=== PATIENT | male | born 1935 | race Caucasian/White ===

== ENCOUNTER 2016-11-12 08:42 | Inpatient (IN) | payer OTHER, BC ==
[~2016-11-12] VITALS: Ht 167.6 cm; Wt 65.0 kg
--- NOTE | ~2016-11-12 | PLAN ---
[facility] [place] [address] REHAB UNIT PLAN OF CARE Name: CARLOTAMARCUS Syed Room #: 505-P ADM IN M.R.#: [id number] Admission: 11/12/16 Attend Phys: Jm Zimmerman MD Discharge: Date of : 35 Report #: [id number] THIS REPORT FOR: //name// CC: Jm Huang DATE OF SERVICE: 11/14/2016 PROGRESS NOTE/OVERALL PLAN OF CARE The patient is seen back today in followup. He is in no distress. Last recorded temperature is 36.8, pulse 54, respirations 20, and blood pressure 119/57. He is alert, pleasant. He does have mild comprehensive deficits with some lqsx-eh-acdocvgj expressive deficits. He seems to be more focused and better retention. Transfers are max assist, bed to wheelchair utilizing the sliding board. In occupational therapy, lower body dressing is dependent. ASSESSMENT: 1. Encephalopathy. Appears to be improving. 2. Left hemiparesis. 3. Premorbid left above-knee amputation. 4. Prior cerebrovascular accident. 5. Left carotid occlusion. 6. Premorbid left above-knee amputation. 7. Renal failure, acute on chronic kidney disease. 8. Hypoxia was noted on original admission. He was noted to have emphysema with low probably for pulmonary embolism. 9. Initial bradycardia, thought related to hypothyroidism. 10. Peripheral vascular disease. PLAN: The overall plan of care is based on the preadmission screen, post-admission physician evaluation and information garnered from therapy assessments. 1. Estimated length of stay is probably two weeks. 2. Medical prognosis is reasonably good. 3. Anticipated interventions includes the interdisciplinary acute inpatient rehabilitation program with PT and OT and speech working with him. Rehab nursing assisting regarding medication management, skin care prophylaxis, bowel and bladder issues and nursing education. Case management is involved as well as the surgical product sales consultant physicians. 4. Anticipated functional outcomes would be for the patient to become better with transfers to achieve a level of limited assistance that he was at before. Also to improve as far as his cognition and level of ADLs, so that he can return back to his prior living situation. 5. Discharge destination would be to return back to the assisted living with his . [facility] [address] [place] [address] REHAB UNIT PLAN OF CARE Name: CARLOTABRADLEYCASSIA Lynch Room #: 505-P [facility] IN [facility].#: [id number] Admission: 11/12/16 Attend Phys: Jm Zimmerman MD Discharge: Date of : 35 Report #: [id number] 6. Expected therapy by discipline would include PT, OT and speech one hour per day each five days a week throughout the duration of the acute inpatient rehabilitation stay. <ELECTRONICALLY SIGNED> By: Jm Zimmerman MD 11/15/16 1223 0828 0916 Jm Zimmerman MD /nt
--- NOTE | ~2016-11-12 | H ---
[facility] [address] HISTORY AND PHYSICAL Name: CARLOTABRADLEYCASSIA Lynch Room #: 505-P ADM IN M.R.#: [id number] Admission: 11/12/16 Attend Phys: Jm Zimmerman MD Discharge: Date of : 35 Report #: [id number] THIS REPORT FOR: //name// CC: Jm Huang DATE OF SERVICE: 11/13/2016 HISTORY OF PRESENT ILLNESS: The patient is an 81-year-old white male previously known to me, who was originally admitted to [facility] with confusion and weakness on 11/08/2016. He was noted to have an encephalopathy. He was seen by Neurology. Noted to have hypoxia with V/Q scan negative. He does have significant emphysema. He has renal insufficiency, acute on chronic kidney disease and was being followed regarding bradycardic with heart rates in the 40s-60s, thought in part be related to hypothyroid state. No indication for a pacemaker. He does have an old stroke with left hemiparesis and has left carotid occlusion and a prior left above knee amputation. With the encephalopathy and mental status changes, he had a significant decrease in his functional level and has now been admitted for acute in-hospital inpatient rehabilitation. PAST MEDICAL HISTORY: Includes severe peripheral vascular disease, left above the knee amputation on 05/23/2016, history of coronary artery disease, premorbid left hemiparesis as noted above, left hip fracture, anemia of chronic disease, protein calorie malnutrition, hypertension, hyperlipidemia. PAST SURGICAL HISTORY: Includes coronary artery bypass surgery, left jalwl-iro-pjsx amputation, left fem-pop bypass, prior left hip repair. MEDICATIONS: Please see the full medication listing. ALLERGIES: CODEINE. FAMILY HISTORY: Noncontributory. SOCIAL HISTORY: Has been living at [facility] with his in an assisted living, was nonambulatory, did receive some assistance with transfers. He used manual wheelchair, no steps. REVIEW OF SYSTEMS: Not on O2 premorbidly. No current complaints of chest pain, shortness of breath or abdominal discomfort. He did not have any other systemic complaints. PHYSICAL EXAMINATION: GENERAL: An 81-year-old white male in no obvious distress. VITAL SIGNS: Last recorded temperature 98.5, pulse 54, respirations 20, blood [address] [address] HISTORY AND PHYSICAL Name: MARCUS VAN Room #: [address] [place] [address]#: [id number] Admission: 11/12/16 Attend Phys: Jm Zimmerman MD Discharge: Date of : 35 Report #: [id number] pressure 141/57. NEUROLOGIC: He is alert. He is pleasant. He is currently on 2 liters nasal prong O2. Facies appeared to be symmetric. HEENT: Appeared to be benign. CHEST: Some diffuse decreased breath sounds. CARDIOVASCULAR: Sounded regular rate and rhythm. ABDOMEN: Bowel sounds positive, nontender. GENITOURINARY AND RECTAL: Deferred. NEUROLOGIC: He will follow basic 1 step commands with some latency to his responses. Some decreased attention. Overall, is cooperative. EXTREMITIES: He has a definite left hemiparesis with left upper extremity weakness. Strength a grade 3+/5 with some increased tone. He has the left above-knee amputation, which appears well healed. He has some tightness and flexion approximately 15 degrees of flexion contracture. Right upper and right lower extremity are grade 4 to 4-/5. He has been needing assistance with basic transfers, max assist with bed mobility max assist. ASSESSMENT: 1. Encephalopathy. 2. Left hemiparesis. 3. Premorbid left above knee amputation. 4. Question of seizures. Neurology was involved. 5. Renal failure, zyhyc-nh-lkjkmsi kidney disease. 6. Hypoxia noted on original admission. She has emphysema with low probability for pulmonary embolism. 7. Bradycardic thought related to hypothyroidism. 8. Peripheral vascular disease. 9. Right internal carotid artery stenosis. PLAN: The patient is admitted for acute in-hospital inpatient rehabilitation. From a postadmission physician evaluation perspective, there are no relevant changes since the preadmission screening. Please see the above review of prior and current medical and functional conditions and comorbidities. Please see the patient's prior and current functional status. As far as risk of complications, he has multiple medical comorbidities as noted above. Initial plan of care involves the interdisciplinary acute inpatient rehabilitation program with the goal of maximizing the patient's functional independence, so that he can hopefully return back to his prior living situation. Prognosis is reasonably good with estimated length of stay probably at least 2 weeks. We will need to see how he does in therapies. The goal is to get him back to his prior living situation at the assisted living. Potential barriers would include his multiple medical comorbidities and decreased functional status. The patient meets diagnostic criteria for an acute in-hospital inpatient rehabilitation stay. He meets medical necessity criteria. We will have neuropsychology involved with his cognitive deficits/encephalopathy and speech [facility] [address] [place] [address] HISTORY AND PHYSICAL Name: MARCUS VAN Room #: 505-P ADM IN M.R.#: [id number] Admission: 11/12/16 Attend Phys: Jm Zimmerman MD Discharge: Date of : 35 Report #: [id number] therapy will be involved as well. We will have the rehab interdisciplinary team work with him to maximize his functional independence. He meets medical necessity criteria with multiple medical comorbidities as noted above. He does have the tolerance for an acute inpatient rehab level of care and has appropriate discharge goals back to the home setting. <ELECTRONICALLY SIGNED> By: Jm Zimmerman MD 11/15/16 1223 0810 0948 Jm Zimmerman MD /nt
--- NOTE | ~2016-11-12 | HC ---
[facility] [place] [address] CONSULTATION Name: MARCUS VAN Syed Room #: 505-P ADM IN M.R.#: [id number] Admission: 11/12/16 Attend Phys: Jm Zimmerman MD Discharge: Date of : 35 Report #: [id number] THIS REPORT FOR: //name// CC: Jm Huang DATE OF SERVICE: 11/16/2016 NEUROBEHAVIORAL STATUS EXAM ATTENDING PHYSICIAN: Jm Zimmerman M.D ORE GRADER: Du Mayorga, PhD CLINICAL PRESENTATION: The patient is an 81-year-old male admitted to the [facility] rehabilitation unit for a comprehensive inpatient rehabilitation program to improve functional mobility, activities of daily living and self-care and mental status secondary to deterioration in mental status resultant encephalopathy. He was experiencing acute episodes of confusion and disorientation while in his assisted living placement with his . Patient was brought to the hospital. His diagnoses on admission include left hemiparesis, encephalopathy, premorbid left above the knee amputation, question of seizure disorder, renal failure, acute on chronic kidney disease, hypoxia, bradycardia related to hypothyroidism, peripheral vascular disease and right internal carotid artery stenosis. A complete description of his medical condition and history can be found in his medical record. Neuropsychological consultation was requested to provide assistance in the assessment of cognitive and emotional status and to provide recommendations and services. As indicated, prior to this most recent hospitalization, he was living with his in an assisted living apartment at the [facility]. The patient has experienced numerous medical events within the last year that have required hospitalization. He has had numerous falls, an vrptq-bzo-ltzi amputation on 05/23/2016, nonhealing left heel ulcer and contractures of the left lower extremity. He is a high school graduate. He has two children. His family is very supportive. 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 TECHNIQUES UTILIZED: Clinical interview, review of medical records, staff consultation and behavioral observation, interview with and mini mental status exam 2 standard version. EXAMINATION FINDINGS: The patient was alert and partially cooperative with the assessment. He was unable to describe the reason for his hospitalization. The [address] [address] CONSULTATION Name: MARCUS VAN Syed Room #: 505-P [facility] IN ..#: [id number] Admission: 11/12/16 Attend Phys: Jm Zimmerman MD Discharge: Date of : 35 Report #: [id number] patient has diminished insight into aspects of cognitive impairment. He has been having difficulty with memory, attention/concentration and intermittent periods of disorientation. He does not report subjective depression or anxiety at this time. However, decreased insight into cognitive and emotional status is suggested. His performance on the mini mental status exam 2 standard version was extremely low with a raw score of 16 of 30. He has difficulty with visual spatial construction. Immediate memory is poor. Recognition memory appears better maintained than free recall suggesting deficits with retrieval contributing to his performance. His ability to sustain concentration for divided attention is extremely low. Difficulty in following instructions and visual spatial disorganization suggests executive dysfunction. The patient has had a right hemisphere stroke, which is likely contributing to impaired performance. Difficulty with attention/concentration, orientation, immediate recall and executive functioning are suggested. DIAGNOSTIC IMPRESSION: Major neurocognitive disorder (dementia), unspecified, with decreased insight and intermittent irritability -- extent to be determined likely in the moderate range. Depressive disorder, unspecified. RECOMMENDATIONS: Use of an antidepressant to assist with mood and behavior is indicated. He will require assistance in the implementation of compensatory strategies for areas of decreased cognition. Repetition will be necessary for maintaining recall. Encouraging interaction with peers, taking initiative and focus on his physical environmental to improve attention and arousal. Verbal praise and complements when engaging in activity and participating in therapies. I will continue to follow as needed. Thank you very much for allowing me to provide the consultation on this patient. <ELECTRONICALLY SIGNED> By: Du Mayorga, PhD 11/17/16 1540 1245 1953 Du Mayorga, PhD /nt
--- NOTE | ~2016-11-12 | D ---
[facility] [address] [place] [address] DISCHARGE SUMMARY Name: MARCUS VAN Room #: 505-P ADM IN M.R.#: [id number] Admission: 11/12/16 Attend Phys: Jm Zimmerman MD Discharge: Date of : 35 Report #: [id number] THIS REPORT FOR: //name// CC: Jm Huang The patient did miss some therapies on November 26 as she was fatigue/sleepy at that time. By: 1056 1815 Jm Zimmerman MD /nt
[~2016-11-12 08:42] MED LIST: ASPIR 8181 MG PO; ATORVASTATIN CA40 MG PO; BISACODYL SUPP10 MG RECTAL; COLACE100 MG PO; COREG3.125 MG PO; DEMADEX20 MG PO; FERREX 150150 MG PO; FLOMAX0.4 MG PO; GABAPENTIN 100100 MG PO; HYDROCHLOROTHIA25 M2 PO; HYDROCODONE-AP1 EAC6 PO; LAMICTAL100 MG PO; LEVOTHYROXINE0.05 MG PO; LIORESAL 10 MG10 MG PO; LISINOPRIL20 MG PO; MAG-AL PLUS SUS30 ML PO; MELATONIN3 MG PO; METOPROLOL SUCC50 MG PO; MI ACID SUSPEN355 ML PO; MIRALAX17 GM PO; OMEPRAZOLE40 MG PO; ONDANSETRON HCL4 M2 PO; PACERONE 200 M200 M1 PO; PEG3350510 GM PO; PEPCID20 MG PO; PHENERGAN 25 MG25 M1 PO; PROTONIX40 M1 PO; RAMIPRIL10 MG PO; SIMVASTATIN40 MG PO; TRAZODONE HCL50 MG PO; TYLENOL325 MG PO
[2016-11-12] MEDS ORDERED: HEPARIN SO5000 UNIT/ SUBQ (14:08)
[2016-11-12] MEDS ORDERED: DUONEB 2.5-0.5 M3 ML INH (14:08)
[2016-11-12] MEDS ORDERED: LEVOTHYROXIN0.088 MG PO (14:08)
[2016-11-12] MEDS ORDERED: LAMICTAL100 MG PO (14:08)
[2016-11-12] MEDS ORDERED: FLOMAX0.4 MG PO (14:08)
[2016-11-13 05:42] LABS: HEMOGLOBIN 10.7 gm/dL (14.0-18.0); MCH 24.6 pg (26.0-34.0); MCHC 32.3 g/dL (28.0-37.0); RBC 4.35 mil/uL (4.50-6.00); RDW 22.2 % (10.5-14.5); WBC 7.7 thou/uL (4.0-11.0)
[2016-11-13 06:01] LABS: CALCIUM 8.5 mg/dL (8.5-10.1); CREATININE 1.4 mg/dL (0.6-1.3); POTASSIUM 4.4 mmol/L (3.5-5.1)
[2016-11-13 17:57] LABS: HEMATOCRIT 37.1 % (42.0-52.0); HEMOGLOBIN 11.9 gm/dL (14.0-18.0)
[2016-11-14 05:14] LABS: HEMATOCRIT 31.6 % (42.0-52.0); HEMOGLOBIN 10.2 gm/dL (14.0-18.0); MCH 24.6 pg (26.0-34.0); MCHC 32.4 g/dL (28.0-37.0); RBC 4.16 mil/uL (4.50-6.00); RDW 22.4 % (10.5-14.5); WBC 6.4 thou/uL (4.0-11.0)
[2016-11-20 03:52] LABS: HEMATOCRIT 30.7 % (42.0-52.0); HEMOGLOBIN 9.9 gm/dL (14.0-18.0); MCH 24.8 pg (26.0-34.0); MCHC 32.3 g/dL (28.0-37.0); MCV 76.6 fL (80.0-100.0); RBC 4.01 mil/uL (4.50-6.00); RDW 23.1 % (10.5-14.5); WBC 7.1 thou/uL (4.0-11.0)
[2016-11-20 03:56] LABS: CALCIUM 8.3 mg/dL (8.5-10.1); CREATININE 1.7 mg/dL (0.6-1.3); POTASSIUM 4.3 mmol/L (3.5-5.1)
[2016-11-26 10:12] LABS: HEMATOCRIT 33.9 % (42.0-52.0); HEMOGLOBIN 10.9 gm/dL (14.0-18.0); MCH 24.7 pg (26.0-34.0); MCHC 32.2 g/dL (28.0-37.0); MCV 76.8 fL (80.0-100.0); RBC 4.41 mil/uL (4.50-6.00); RDW 23.1 % (10.5-14.5)
[2016-11-26 10:22] LABS: CALCIUM 8.5 mg/dL (8.5-10.1); CREATININE 1.6 mg/dL (0.6-1.3); POTASSIUM 4.2 mmol/L (3.5-5.1)
[2016-11-26 10:29] LABS: TOTAL BILIRUBIN 0.4 mg/dL (<0.1-1.0); TOTAL PROTEIN 6.4 g/dL (6.4-8.2)
[2016-11-26 11:03] LABS: ABG SAMPLE TYPE ARTERIAL; BE(vivo) -1.8 mmol/L (-2 to +3); HCO3 23.3 mmol/L (22.0-26.0); LACTATE 0.66 mmol/L (0.5-2.0); O2(CT) 13.9 mL/dL (15.0-23.0); PCO2 40.9 mmHg (35.0-45.0); PO2 56.3 mmHg (80.0-100.0); STICK SITE R.BRACHIAL; pH 7.374 (7.360-7.450); sO2 88.7 % (92.0-98.0); tCO2 24.6 mmol/L (24.0-30.0)
[2016-11-27 05:13] LABS: HEMATOCRIT 31.6 % (42.0-52.0); MCH 24.1 pg (26.0-34.0); MCHC 31.5 g/dL (28.0-37.0); MCV 76.4 fL (80.0-100.0); RBC 4.13 mil/uL (4.50-6.00); RDW 23.3 % (10.5-14.5); WBC 10.7 thou/uL (4.0-11.0)
[2016-11-27 15:32] LABS: URINE BILIRUBIN NEGATIVE (Negative); URINE BLOOD NEGATIVE (Negative); URINE COLOR YELLOW; URINE GLUCOSE-RANDOM* NEGATIVE (Negative); URINE KETONES NEGATIVE (Negative); URINE LEUKOCYTES-REFLEX NEGATIVE (Negative); URINE PROTEIN (DIPSTICK) TRACE (Negative); URINE SPECIFIC GRAVITY 1.025 (1.003-1.035)
[2016-11-28] MEDS ORDERED: PREDNISONE 10 M10 M1 PO (11:42)
[2016-11-28] MEDS ORDERED: NYAMYC15 GM TOP (11:42)
[2016-11-28] MEDS ORDERED: HOME MEDICATION INH (11:42)
[2016-11-28] MEDS ORDERED: PROTONIX40 M2 PO (11:43)
== END 2016-11-28 14:14 | DRG 71 ==
PROVIDERS: Internal Medicine; Physical Medicine & Rehabilitation
DX: G93.40 Encephalopathy, unspecified (principal); N17.9 Acute kidney failure, unspecified; I69.354 Hemiplegia and hemiparesis following cerebral infarction affecting left non-dominant side; N18.9 Chronic kidney disease, unspecified; E03.9 Hypothyroidism, unspecified; I73.9 Peripheral vascular disease, unspecified; F01.50 Vascular dementia, unspecified severity, without behavioral disturbance, psychotic disturbance, mood disturbance, and anxiety; F32.9 Major depressive disorder, single episode, unspecified; I25.10 Atherosclerotic heart disease of native coronary artery without angina pectoris; D63.8 Anemia in other chronic diseases classified elsewhere; E78.5 Hyperlipidemia, unspecified; I10 Essential (primary) hypertension; R00.0 Tachycardia, unspecified; I65.23 Occlusion and stenosis of bilateral carotid arteries; R53.81 Other malaise; J44.9 Chronic obstructive pulmonary disease, unspecified; Z95.1 Presence of aortocoronary bypass graft; Z89.612 Acquired absence of left leg above knee; Z87.81 Personal history of (healed) traumatic fracture; Z88.6 Allergy status to analgesic agent
CPT/HCPCS: 10112

== ENCOUNTER 2017-09-01 11:00 | Inpatient (IN) | payer OTHER, BC ==
[~2017-09-01] VITALS: Ht 167.6 cm; Wt 67.1 kg
--- NOTE | ~2017-09-01 | EKG ---
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 : 1935 Requested By: Nikia Ashley Order Number: [id number] MD: Drew Zacarias Measurements Intervals [place] Rate: 79 P: 16 NE: 182 QRS: -29 QRSD: 160 T: 7 QT: 386 QTc: 443 Interpretive Statements Sinus rhythm LVH with secondary repolarization abnormality Inferior infarct, old Compared to ECG 11/08/2016 13:55:52 Sinus bradycardia no longer present Electronically Signed On 09-02-2017 8:31:27 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
--- NOTE | ~2017-09-01 | H ---
[facility] [place] [address] HISTORY AND PHYSICAL Name: CARLOTABRADLEYCASSIA Lynch Room #: 218-P ADM IN M.R.#: [id number] Admission: 09/01/17 Attend Phys: Dominguez Rene MD Discharge: Date of : 35 Report #: [id number] THIS REPORT FOR: //name// CC: Qamar Rene DATE OF SERVICE: 09/01/2017 CHIEF COMPLAINT: Generalized weakness, nausea and cough. HISTORY OF PRESENT ILLNESS: The patient is an 82-year-old man with multiple medical problems, who has not felt well for last few days. The patient has had generalized weakness, nausea, vomited a few times, as well as had shortness of breath for last 3 days. The patient started having cough with greenish sputum production. He came to the Emergency Room. The patient was found to have fever of 100.2. His blood pressure has been borderline low. Chest x-ray showed infiltrates, mostly on the left, involving perihilar region as well as left lower lobe. The patient has mild leukocytosis. The patient has no chest pain. His troponin was also checked, that was found to be elevated mildly. EKG also showed no acute findings. PAST MEDICAL HISTORY: 1. CKD. 2. Coronary artery disease, status post CABG in 10/2015. 3. Peripheral vascular disease, status post left AKA in 05/2016. 4. Peripheral vascular disease. 5. BPH. 6. Hypertension. 7. Malnutrition. 8. Dyslipidemia. 9. History of left hip fracture. 10. CVA, with residual left hemiparesis. 11. Hypothyroidism. CURRENT MEDICATIONS: Reviewed and documented in the patient's chart. FAMILY HISTORY: Reviewed and not pertinent to the patient's current condition. SOCIAL HISTORY: The patient quit smoking cigarettes years ago. He does not drink alcohol. He lives with his son. The patient lives in the assisted living facility. REVIEW OF SYSTEMS: As above in HPI section, all others negative. [address] [address] HISTORY AND PHYSICAL Name: MARCUS VAN Syed Room #: [address] [place] [address].#: [id number] Admission: 09/01/17 Attend Phys: Dominguez Rene MD Discharge: Date of : 35 Report #: [id number] PHYSICAL EXAMINATION: GENERAL: The patient is an elderly man, in no apparent distress. VITAL SIGNS: Blood pressure is 106/60, heart rate is 82 and regular, respirations 20, temperature is 100.2. HEENT: Pupils are equal. Eye movements are normal. Sclerae are anicteric. NECK: Supple. The patient has no thyromegaly. JVD is not appreciated. Neck lymphadenopathy is not palpated. RESPIRATORY: The patient has significantly diminished respiratory sounds, more on the left side. He has no wheezes or crackles. CARDIOVASCULAR: The patient has regular rhythm and rate. He has no murmurs, gallops or rubs. GASTROINTESTINAL: Abdomen is soft, nondistended and nontender. Bowel sounds are present. Hepatomegaly or splenomegaly is not palpated. The patient has normal bowel sounds. MUSCULOSKELETAL: The patient is status post left-sided above-knee amputation. He has no edema, cyanosis or clubbing. NEUROLOGIC: The patient has residual left-sided weakness. He is alert and oriented x 3. SKIN: Reveals no skin lesions. Skin is dry and warm. No lymphadenopathy is palpated. LABORATORY DATA: On CBC, white count is 11,600. Hemoglobin is 13.4, hematocrit is 41.3, platelets 116. The patient has 7% bands. Biochemical profile, basic metabolic panel is normal. Creatinine is at baseline, 1.5. Liver function tests are normal. Albumin is low at 3.3. Troponin is 1.89. BNP is elevated at 3943. As noted, EKG showed no acute findings. Chest x-ray shows bilateral infiltrates, more on the left. ASSESSMENT AND PLAN: 1. Pneumonia. The patient is already started on antibiotics. Blood cultures obtained. Antibiotics will be continued. Breathing treatments will be added. 2. Significantly elevated BNP and bilateral infiltrates. Due to current illness? congestive heart failure? Obtain cardiac echo. We will use few doses of Lasix. 3. Elevated troponin, no chest pain, no EKG changes. Likely due to pneumonia. Given the patient's extensive history of coronary artery disease and history of coronary artery bypass graft in 10/2015, we will consult predatory hunter for further evaluation. 4. Chronic kidney disease stage 3, stable creatinine at 1.5. We will monitor. 5. Deep venous thrombosis prophylaxis. SubQ Lovenox. <ELECTRONICALLY SIGNED> By: Dominguez Rene MD 09/03/17 0746 1429 1538 Dominguez Rene MD /nt
--- NOTE | ~2017-09-01 | HC ---
[facility] [place] [address] CONSULTATION Name: CALROTAMARCUS Syed Room #: 218-P [facility] IN .R.#: [id number] Admission: 09/01/17 Attend Phys: Dominguez Rene MD Discharge: Date of : 35 Report #: [id number] THIS REPORT FOR: //name// CC: Qamar Rene INDICATION: Dyspnea. HISTORY OF PRESENT ILLNESS: This is an 82-year-old gentleman presenting with nausea, fever, and shortness of breath. Over the weekend, he had chronic nausea and vomiting episodes. This morning, he woke up and felt chills and developed a low-grade fever. He also developed shortness of breath today and presented to the ER for an evaluation. He reports no episodes of angina, diarrhea, or lightheadedness. In the ER, he was noted to have minimally elevated troponin levels. He was diagnosed with pneumonia and has been admitted to the hospital for treatment. PAST MEDICAL HISTORY: CAD with CABG in October 2015, history of COPD, history of PVD, status post left lower extremity amputation in May 2016, hypertension, hypercholesterolemia, chronic kidney disease, edema, and history of altered mental status. ALLERGIES: To CODEINE. MEDICATIONS: Have been reviewed and are documented in the patient's chart. SOCIAL HISTORY: Denies any tobacco use. Currently lives in [facility] in the [facility] living area. FAMILY HISTORY: Negative for premature CAD. REVIEW OF SYSTEMS: A full 10-point review of systems performed, only the pertinent positives and negatives are described in the HPI. PHYSICAL EXAMINATION: VITAL SIGNS: Blood pressure is 110/60, heart rate is 80 beats per minute. GENERAL APPEARANCE: This is an elderly appearing male, in no acute respiratory distress. HEAD AND EYES: Normocephalic. Sclerae are anicteric. ENT: Oral mucosa moist. NECK: Supple. LUNGS: Diminished breath sounds at the bases. CARDIAC: S1, S2 positive, 1/6 systolic murmur. ABDOMEN: Soft, nontender, bowel sounds positive. EXTREMITIES: No cyanosis. Left AKA. LABORATORY VALUES: White count 11.6, hemoglobin 13.4. Creatinine is 1.5. [facility] [address] [place] [address] CONSULTATION Name: MARCUS VAN Room #: 218-P [facility] IN [facility].#: [id number] Admission: 09/01/17 Attend Phys: Dominguez Rene MD Discharge: Date of : 35 Report #: [id number] Troponin is 1.89. ASSESSMENT AND PLAN: 1. Pneumonia/community acquired. The patient is admitted to the hospital for IV antibiotics. Check blood cultures. 2. Positive troponin consistent with non-ST elevation myocardial infarction. Stable with no symptoms of angina. Continue with his cardiac medications including aspirin. He will also need an echocardiogram. 3. Hypertension, continue with medications. 4. Chronic obstructive pulmonary disease, continue with inhalers. 5. Paroxysmal atrial fibrillation, continue with amiodarone. 6. Hypercholesterolemia, continue with statin therapy. <ELECTRONICALLY SIGNED> By: Jaime Stephens MD 09/02/17 0843 1652 2107 Jaime Stephens MD /nt
--- NOTE | ~2017-09-01 | D ---
[facility] [place] [address] DISCHARGE SUMMARY Name: MARCUS VAN Room #: 218-P [facility] IN ..#: [id number] Admission: 09/01/17 Attend Phys: Dominugez Rene MD Discharge: 09/04/17 Date of : 35 Report #: [id number] THIS REPORT FOR: //name// CC: Qamar Rnee DATE OF SERVICE: 09/04/2017 HISTORY OF PRESENT ILLNESS: The patient is an 82-year-old man with multiple medical problems, who came to the hospital with generalized weakness, cough and nausea. Please refer to the admission H and P for details. In brief, the patient was found to have pneumonia based on chest x-ray, with bilateral infiltrates, more on the left. HOSPITALIZATION COURSE: The patient was hospitalized at [facility]. Given his multiple hospitalizations before, he was started on broad spectrum antibiotics. CHF was also one of the considerations, as the patient has a cardiac history. Cardiac echo showed normal left ventricular ejection fraction. On antibiotics, the patient did well. His condition improved. Symptoms resolved. Currently, the patient is back to his baseline. He was assessed by physical therapist, and home health was recommended. He will be discharged home today on oral antibiotics. DISCHARGE DIAGNOSES: 1. Pneumonia, involving bilateral lower lobes, more on the left. Clinically much better. 2. Mildly elevated troponin on admission, without EKG changes and without chest pain. Likely due to demand ischemia. The patient was followed by pen maker, and managed medically. Unremarkable cardiac echo. 3. Chronic kidney disease stage 3, stable during the hospitalization. 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 DISCHARGE MEDICATIONS: Please refer to the medication reconciliation list. In brief, the patient is continued on outpatient medications unchanged. He will be treated with oral Levaquin 750 mg every other days for 10 more days. DISPOSITION: The patient is discharged home on home health. [address] [address] DISCHARGE SUMMARY Name: CARLOTAMARCUS Room #: 218-P [facility]#: [id number] Admission: 09/01/17 Attend Phys: Dominguez Rene MD Discharge: 09/04/17 Date of : 35 Report #: [id number] I spent greater than 30 minutes to coordinate the patient's discharge from the hospital. <ELECTRONICALLY SIGNED> By: Dominguez Rene MD 09/04/17 1635 1123 1152 Dominguez Rene MD /nt
--- NOTE | ~2017-09-01 | HC ---
[facility] [place] [address] CONSULTATION Name: CARLOTABRADLEYCASSIA Lynch Room #: 218-P [facility] IN .R.#: [id number] Admission: 09/01/17 Attend Phys: Dominguez Rene MD Discharge: Date of : 35 Report #: [id number] THIS REPORT FOR: //name// CC: Qamar Rene DATE OF SERVICE: 09/04/2017 HISTORY OF PRESENT ILLNESS: The patient is an 82-year-old white male admitted with shortness of breath, pneumonia, increased BNP who was noted to have chronic kidney disease stage 3. He has a prior left above knee amputation. We are seeing him in rehabilitation medicine consultation. PAST MEDICAL HISTORY: Severe peripheral vascular disease, left above knee amputation 05/23/2016, history of coronary artery disease, premorbid left hemiparesis with an old stroke and a history of left carotid occlusion, history of anemia of chronic disease, protein-calorie malnutrition, hypertension, hyperlipidemia. PAST SURGICAL HISTORY: Includes coronary artery bypass graft surgery, left, fem-pop bypass, left above knee amputation, prior left hip repair. MEDICATIONS: Please see the full medication listing. ALLERGIES: CODEINE. FAMILY HISTORY: Noncontributory. SOCIAL HISTORY: Lives at [facility] with his , nonambulatory, has a wheelchair or scooter. It is noted that they assist him with transfers. REVIEW OF SYSTEMS: No current complaints of chest pain, shortness of breath or abdominal discomfort. PHYSICAL EXAMINATION: GENERAL: An 82-year-old white male in no obvious distress. VITAL SIGNS: Last recorded temperature is 97.9, pulse 60, respirations 18, blood pressure 111/50. NEUROLOGIC: He is pleasant, alert, fair historian. Follows basic 1 step commands without difficulty. Upper extremity appears to have some contractures of his left hand in flexion. Upper extremity range of motion otherwise appears intact. From a functional perspective, his strength probably grade 4-/5. DTRs are trace to 1. Right lower extremity strength is probably a grade 3+ to 4-/5. He has the left above-knee amputation. There is no distal edema of the right lower extremity. Tone is intact. He is currently max assist with bed to chair [address] [address] CONSULTATION Name: MARCUS VAN Room #: 218-P [facility] IN [facility]#: [id number] Admission: 09/01/17 Attend Phys: Dominguez Rene MD Discharge: Date of : 35 Report #: [id number]. ASSESSMENT: An 82-year-old white male with the following problem list: 1. Pneumonia. 2. Elevated troponin. 3. Prior left above-knee amputation. 4. Hypertension. 5. Chronic obstructive pulmonary disease. 6. Paroxysmal atrial fibrillation. PLAN: The patient lives in an assisted living facility. Per the last case management notes, the patient is discharging back to the assisted living facility with the son planning on picking the patient up. Apparently, the therapy in-charge nurse at the assisted living facility have been contacted and they assist the patient already a lot with transfers and ADLs and feel that they can handle him back at the assisted living facility at his current functional level. With this set up, I would be in agreement with the patient discharging directly to his assisted living facility for the holidays as are being arranged. Thank you for asking us to assist in this patient's care. By: 1132 [id number] Jm Zimmerman MD /[facility]
--- NOTE | ~2017-09-01 | 2DMMODE ---
[facility] [address] [place] [address] 2 D/M-MODE ECHOCARDIOGRAM Name: MARCUS VAN Room #: 218-P [facility] IN ..#: [id number] Admission: 09/01/17 Attend Phys: Dominguez Rene Discharge: Date of : 35 Date of Service: 09/02/17 1340 Report #: [id number] THIS REPORT FOR: //name// APPROVED REPORT Study performed: 09/02/2017 13:58:25 EXAM: Comprehensive 2D, Doppler, and color-flow Echocardiogram Patient Location: Bedside Room #: 218 Status: routine BSA: 1.77 HR: 53 bpm BP: 125/60 mmHg Rhythm: NSR Other Information Study Quality: Good Indications NSTEMI. Hx: CABG, CHF, PVD, HTN, HLP 2D Dimensions RVDd: 35.78 mm LVEF(%): 42.31 (>50%) IVSd: 10.26 (7-11mm) LVOT Diam: 19.08 (18-24mm) LVDd: 42.92 mm PWd: 10.05 (7-11mm) LVDs: 34.08 (25-40mm) Aortic Root: 32.72 mm Elkins's LVEF: 42.31 % Volumes Left Atrial Volume (Systole) Single Plane 4CH: 67.84 mL Single Plane 2CH: 66.64 mL LA ESV Index: 40.00 mL/m2 Aortic Valve AoV Peak Clinton.: 1.63 m/s AO Peak Gr.: 10.68 mmHg LVOT Max P.52 mmHg LVOT Max V: 1.06 m/s DANDY Vmax: 1.86 cm2 Mitral Valve E/A Ratio: 1.3 MV Decel. Time: 173.89 ms [facility] [place] [address] 2 D/M-MODE ECHOCARDIOGRAM Name: MARCUS VAN Room #: 218-P [facility] IN .R.#: [id number] Admission: 09/01/17 Attend Phys: Dominguez Rene Discharge: Date of : 35 Date of Service: 09/02/17 1340 Report #: [id number] MV E Max Clinton.: 1.19 m/s MV A Clinton.: 0.90 m/s MV PHT: 50.43 ms IVRT: 78.43 ms Pulmonary Valve PV Peak Clinton.: 1.07 m/s PV Peak Gr.: 4.57 mmHg Pulmonary Vein P Vein S: 0.71 m/s P Vein A: 0.25 m/s P Vein D: 0.65 m/s P Vein A Dur.: 138.4 msec P Vein S/D Ratio: 1.09 Tricuspid Valve TR Peak Clinton.: 2.79 m/s RAP Estimate: 5.00 mmHg TR Peak Gr.: 31.08 mmHg PA Pressure: 36.00 mmHg Left Ventricle The left ventricle is normal size. There is normal left ventricular wall thickness. Left ventricular systolic function is low normal. LVEF is 50%. Moderate diastolic dysfunction is present (pseudonormal filling). Right Ventricle The right ventricle is normal size. The right ventricular systolic function is normal. Atria Left atrium is moderately dilated. The right atrium size is normal. Aortic Valve Aortic valve is calcified. Trace aortic regurgitation. There is no aortic valvular stenosis. Mitral Valve The mitral valve is normal in structure. Mild mitral annular calcification. Trace mitral regurgitation. Tricuspid Valve The tricuspid valve is normal in structure. Mild tricuspid regurgitation. Estimated PAP is 35-40mmHg. Pulmonic Valve The pulmonary valve is normal in structure. Trace to mild pulmonic [address] [address] 2 D/M-MODE ECHOCARDIOGRAM Name: MARCUS VAN Room #: 218-P [facility] IN [facility]#: [id number] Admission: 09/01/17 Attend Phys: Dominguez Rene Discharge: Date of : 35 Date of Service: 09/02/17 1340 Report #: [id number] regurgitation. Great Vessels The aortic root is normal in size. Ascending aorta is not well visualized. IVC is normal in size and collapses >50% with inspiration. Pericardium There is no pericardial effusion. <Conclusion> The left ventricle is normal size. Left ventricular systolic function is low normal. Moderate diastolic dysfunction is present (pseudonormal filling). The right ventricle is normal size. Left atrium is moderately dilated. Aortic valve is calcified. Trace aortic regurgitation. Trace mitral regurgitation. Mild tricuspid regurgitation. Estimated PAP is 35-40mmHg. <ELECTRONICALLY SIGNED> By: Jaime Stephens MD 09/02/17 1340 39 134 Jaime Stephens MD /INF
[~2017-09-01 11:00] MED LIST changes: +DUONEB 2.5-0.5 M3 ML INH; +HEPARIN SO5000 UNIT/ SUBQ; +HOME MEDICATION INH; +LEVOTHYROXIN0.088 MG PO; +NYAMYC15 GM TOP; +PREDNISONE 10 M10 M1 PO; +PROTONIX40 M2 PO
[2017-09-01 11:05] VITALS: BP 106/60
[2017-09-01 12:30] LABS: HEMATOCRIT 41.3 % (42.0-52.0); HEMOGLOBIN 13.4 gm/dL (14.0-18.0); MCH 26.6 pg (26.0-34.0); MCHC 32.4 g/dL (28.0-37.0); MCV 81.9 fL (80.0-100.0); PLATELET COUNT 116 thou/uL (150-400); RBC 5.04 mil/uL (4.50-6.00); RDW 17.7 % (10.5-14.5); WBC 11.6 thou/uL (4.0-11.0)
[2017-09-01 12:33] LABS: CALCIUM 8.6 mg/dL (8.5-10.1); CREATININE 1.5 mg/dL (0.7-1.3); MANUAL DIFF YES; POTASSIUM 4.1 mmol/L (3.5-5.1)
[2017-09-01 12:42] LABS: ALBUMIN 3.3 g/dL (3.4-5.0); MAGNESIUM 1.8 mg/dL (1.8-2.4); TOTAL BILIRUBIN 0.6 mg/dL (<0.1-1.0); TOTAL PROTEIN 6.3 g/dL (6.4-8.2)
[2017-09-01 12:46] LABS: TROPONIN-I 1.89 ng/mL (<0.06)
[2017-09-01 12:54] LABS: ABSOLUTE NEUTROPHILS 10.2 thou/uL (1.4-8.2); ANISOCYTOSIS 1+; TOTAL CELL COUNT 100
[2017-09-01] MEDS ORDERED: SYNTHROID50 MCG PO (14:13)
[2017-09-01] MEDS ORDERED: LEXAPRO5 MG PO (14:14)
[2017-09-01] MEDS ORDERED: FERREX 150150 MG PO (14:15)
[2017-09-01] MEDS ORDERED: OMEPRAZOLE 20 M20 M1 PO (14:16)
[2017-09-01] MEDS ORDERED: ADVAIR 250-501 EACH INH (14:17)
[2017-09-01] MEDS ORDERED: LAMICTAL100 MG PO (14:18)
[2017-09-01] MEDS ORDERED: CARVEDILOL3.125 MG PO (14:18)
[2017-09-01] MEDS ORDERED: NORCO 5-325 TA1 EACH PO ×2 (14:21→14:23)
[2017-09-01 14:27] VITALS: BP 103/58
[2017-09-01 14:34] LABS: URINE BLOOD NEGATIVE (Negative); URINE COLOR YELLOW; URINE GLUCOSE-RANDOM* NEGATIVE (Negative); URINE KETONES TRACE (Negative); URINE NITRITE NEGATIVE (Negative); URINE PROTEIN (DIPSTICK) TRACE (Negative); URINE SPECIFIC GRAVITY 1.025 (1.005-1.035); URINE UROBILINOGEN 0.2 E.U./dl (0.2-1.0)
[2017-09-01 14:38] LABS: ICTOTEST (BILI CONFIRMATORY) Negative (Negative); URINE BILIRUBIN NEGATIVE (Negative)
[2017-09-01 15:31] VITALS: BP 113/52
[2017-09-01 16:21] VITALS: BP 126/59
[2017-09-01 19:14] VITALS: BP 122/61
[2017-09-01 23:53] VITALS: BP 132/58
[2017-09-02 04:03] VITALS: BP 131/56
[2017-09-02 04:36] LABS: HEMATOCRIT 34.8 % (42.0-52.0); MCH 26.6 pg (26.0-34.0); MCHC 32.8 g/dL (28.0-37.0); MCV 81.3 fL (80.0-100.0); PLATELET COUNT 102 thou/uL (150-400); RBC 4.29 mil/uL (4.50-6.00); RDW 17.5 % (10.5-14.5); WBC 12.7 thou/uL (4.0-11.0)
[2017-09-02 04:39] LABS: HEMOGLOBIN 11.4 gm/dL (14.0-18.0); MANUAL DIFF YES
[2017-09-02 04:44] LABS: CALCIUM 8.4 mg/dL (8.5-10.1); CREATININE 1.5 mg/dL (0.7-1.3); POTASSIUM 4.4 mmol/L (3.5-5.1)
[2017-09-02 05:57] LABS: ABSOLUTE NEUTROPHILS 11.7 thou/uL (1.4-8.2); TOTAL CELL COUNT 100
[2017-09-02 05:58] LABS: ANISOCYTOSIS 1+; LARGE PLATELETS OCCASIONAL
[2017-09-02 08:30] VITALS: BP 125/60
[2017-09-02 15:49] VITALS: BP 133/63
[2017-09-02 20:15] VITALS: BP 138/64; BP 170/63
[2017-09-03 00:15] VITALS: BP 143/59
[2017-09-03 04:15] VITALS: BP 141/62
[2017-09-03 08:49] VITALS: BP 136/67
[2017-09-03 12:25] VITALS: BP 130/60
[2017-09-03 16:11] VITALS: BP 126/72
[2017-09-03 20:54] VITALS: BP 168/60
[2017-09-04 04:05] LABS: ABSOLUTE NEUTROPHILS 6.1 thou/uL (1.4-8.2); BASOPHILS 0.7 % (0.0-2.0); EOSINOPHILS 3.1 % (0.0-3.0); HEMATOCRIT 37.7 % (42.0-52.0); HEMOGLOBIN 12.6 gm/dL (14.0-18.0); LYMPHOCYTES 11.6 % (24.0-44.0); MCHC 33.3 g/dL (28.0-37.0); MONOCYTES 8.3 % (1.0-8.0); PLATELET COUNT 127 thou/uL (150-400); POLYS 76.3 % (36.0-66.0); RBC 4.66 mil/uL (4.50-6.00); RDW 17.6 % (10.5-14.5)
[2017-09-04 04:06] LABS: MANUAL DIFF NO
[2017-09-04 04:08] LABS: CALCIUM 8.6 mg/dL (8.5-10.1); CREATININE 1.5 mg/dL (0.7-1.3); POTASSIUM 3.8 mmol/L (3.5-5.1)
[2017-09-04 04:15] VITALS: BP 167/71
[2017-09-04 07:38] VITALS: BP 157/57
[2017-09-04 10:53] VITALS: BP 157/57
[2017-09-04 11:17] VITALS: BP 111/50
[2017-09-04] MEDS ORDERED: LEVAQUIN 750 M750 MG PO (11:27)
[2017-09-04 11:39] VITALS: BP 157/57
== END 2017-09-04 15:58 | disposition home health service (06) | DRG 177 ==
LOC: ER 11:00 → 2N 13:10 → EROBS 13:10 → 2N 15:32 → ENTRNSPT 09-04 15:38 → EDTRNSPTSTS 09-04 15:41 → 2N 09-04 15:58
PROVIDERS: Internal Medicine Endocrinology, Diabetes & Metabolism; Nurse Practitioner Family
DX: J69.0 Pneumonitis due to inhalation of food and vomit (principal); I21.4 Non-ST elevation (NSTEMI) myocardial infarction; I69.354 Hemiplegia and hemiparesis following cerebral infarction affecting left non-dominant side; I13.0 Hypertensive heart and chronic kidney disease with heart failure and stage 1 through stage 4 chronic kidney disease, or unspecified chronic kidney disease; E46 Unspecified protein-calorie malnutrition; J44.0 Chronic obstructive pulmonary disease with (acute) lower respiratory infection; J18.9 Pneumonia, unspecified organism; K21.9 Gastro-esophageal reflux disease without esophagitis; E78.00 Pure hypercholesterolemia, unspecified; N40.0 Benign prostatic hyperplasia without lower urinary tract symptoms; I73.9 Peripheral vascular disease, unspecified; I50.9 Heart failure, unspecified; N18.3 Chronic kidney disease, stage 3 (moderate); I25.10 Atherosclerotic heart disease of native coronary artery without angina pectoris; I48.0 Paroxysmal atrial fibrillation; E78.5 Hyperlipidemia, unspecified; E03.9 Hypothyroidism, unspecified; Z87.81 Personal history of (healed) traumatic fracture; Z95.1 Presence of aortocoronary bypass graft; Z79.899 Other long term (current) drug therapy; Z88.5 Allergy status to narcotic agent; Z90.49 Acquired absence of other specified parts of digestive tract; Z89.612 Acquired absence of left leg above knee; Z87.891 Personal history of nicotine dependence; Z68.23 Body mass index [BMI] 23.0-23.9, adult
CPT/HCPCS: 10081

== ENCOUNTER → 2019-01-28 | Outpatient (CLI) | payer OTHER, BC ==
[~2019-01-28] MED LIST changes: +ADVAIR 250-501 EACH INH; +CARVEDILOL3.125 MG PO; +LEVAQUIN 750 M750 MG PO; +LEXAPRO5 MG PO; +NORCO 5-325 TA1 EACH PO; +OMEPRAZOLE 20 M20 M1 PO; +SYNTHROID50 MCG PO
== END ==
LOC: NUC 07:54
DX: I25.10 Atherosclerotic heart disease of native coronary artery without angina pectoris (principal); E78.5 Hyperlipidemia, unspecified; I10 Essential (primary) hypertension; I21.9 Acute myocardial infarction, unspecified; J44.9 Chronic obstructive pulmonary disease, unspecified; Z88.5 Allergy status to narcotic agent; Z87.891 Personal history of nicotine dependence; Z79.899 Other long term (current) drug therapy

== ENCOUNTER 2019-07-15 10:34 | Inpatient (IN) | payer OTHER, BC ==
[~2019-07-15] VITALS: Ht 167.6 cm; Wt 63.6 kg
[2019-07-15 10:35] VITALS: BP 106/52
[2019-07-15 10:57] LABS: ABSOLUTE NEUTROPHILS 14.4 thou/uL (1.4-8.2); BASOPHILS 0.4 % (0.0-2.0); EOSINOPHILS 0.3 % (0.0-3.0); HEMATOCRIT 38.3 % (42.0-52.0); HEMOGLOBIN 12.1 gm/dL (14.0-18.0); LYMPHOCYTES 3.6 % (24.0-44.0); MCH 26.5 pg (26.0-34.0); MCHC 31.7 g/dL (28.0-37.0); MCV 83.6 fL (80.0-100.0); MONOCYTES 6.5 % (1.0-8.0); PLATELET COUNT 163 thou/uL (150-400); POLYS 89.2 % (36.0-66.0); RBC 4.58 mil/uL (4.50-6.00); RDW 16.9 % (10.5-14.5); WBC 16.2 thou/uL (4.0-11.0)
[2019-07-15] MEDS ORDERED: FERREX 150150 MG PO (11:06)
[2019-07-15] MEDS ORDERED: NEURONTIN 300M300 M2 PO (11:06)
[2019-07-15 11:07] LABS: ANION GAP 7 mmol/L (7-16); BUN 28 mg/dL (7-18); CALCIUM 8.8 mg/dL (8.5-10.1); CHLORIDE 103 mmol/L (98-107); CO2 29 mmol/L (21-32); CREATININE 1.6 mg/dL (0.7-1.3); GLUCOSE 114 mg/dL (74-106); POTASSIUM 4.3 mmol/L (3.5-5.1); SODIUM 139 mmol/L (136-145)
[2019-07-15] MEDS ORDERED: PANTOPRAZOLE SO40 M1 PO (11:07)
[2019-07-15] MEDS ORDERED: REQUIP 0.25 M0.25 MG PO (11:08)
[2019-07-15] MEDS ORDERED: TYLENOL325 MG PO (11:09)
[2019-07-15 11:17] LABS: ALBUMIN 3.2 g/dL (3.4-5.0); SGOT 14 U/L (15-37); SGPT 14 U/L (30-65); TOTAL BILIRUBIN 0.6 mg/dL (<0.1-1.0); TOTAL PROTEIN 6.6 g/dL (6.4-8.2); TROPONIN-I <0.06 ng/mL (<0.06)
[2019-07-15 11:17] LABS: BE(vivo) -1.6 mmol/L (-2 to +3); HCO3 22.4 mmol/L (22.0-26.0); PCO2 35.8 mmHg (35.0-45.0); pH 7.415 (7.360-7.450)
[2019-07-15 13:19] LABS: URINE BILIRUBIN NEGATIVE (Negative); URINE BLOOD NEGATIVE (Negative); URINE CLARITY CLEAR; URINE COLOR YELLOW; URINE GLUCOSE-RANDOM* NEGATIVE (Negative); URINE KETONES NEGATIVE (Negative); URINE NITRITE-REFLEX NEGATIVE (Negative); URINE PROTEIN (DIPSTICK) TRACE (Negative); URINE UROBILINOGEN 0.2 E.U./dl (0.2-1.0)
[2019-07-15 13:23] LABS: URINE LEUKOCYTES-REFLEX 1+ (Negative)
[2019-07-15 13:27] LABS: BACTERIA-REFLEX 1-9 Few /HPF (None Seen); CASTS None Seen /LPF (None Seen); CRYSTALS None Seen /LPF (None Seen); SQUAMOUS None Seen /LPF (0-3); URINE RBC None Seen /HPF (0-2); URINE WBC-REFLEX 6-15 Few /HPF (0-5)
--- NOTE | 2019-07-15 17:46 | EKG ---
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 : 1935 Requested By: Adalgisa Gongora Order Number: [id number] MD: Drew Zacarias Measurements Intervals [place] Rate: 77 P: 0 [place]: 184 QRS: -29 QRSD: 92 T: 20 QT: 420 QTc: 476 Interpretive Statements Sinus rhythm Abnormal R-wave progression, late transition Inferior infarct, old Compared to ECG 09/01/2017 12:08:28 Nonspecific change in the T wave abnormality Electronically Signed On 07-15-2019 17:45:48 CDT by Drew Zacarias [email or web address] <ELECTRONICALLY SIGNED> By: Drew Zacarias MD, FACC 07/15/19 1745 1150 1150 Drew Zacarias MD, FAC /EPI
[2019-07-15 22:02] VITALS: BP 126/45
[2019-07-16] VITALS (7 sets, daily range): BP systolic 124–143; BP diastolic 46–56
[2019-07-16 05:07] LABS: HEMATOCRIT 31.4 % (42.0-52.0); MCH 26.6 pg (26.0-34.0); MCHC 31.3 g/dL (28.0-37.0); MCV 84.8 fL (80.0-100.0); RBC 3.7 mil/uL (4.50-6.00); WBC 12.4 thou/uL (4.0-11.0)
[2019-07-16 05:29] LABS: CALCIUM 7.8 mg/dL (8.5-10.1); CREATININE 1.5 mg/dL (0.7-1.3); POTASSIUM 4.3 mmol/L (3.5-5.1)
[2019-07-16 05:56] LABS: HEMOGLOBIN 9.8 gm/dL (14.0-18.0)
--- NOTE | 2019-07-16 07:04 | NUR ---
PATIENTS CARE WAS ASSUMED AFTER HE TRANSFERED UP FRON THE ED. PATIENT WAS ADMITTED, ASSESSED AND MEDS WERE PASSED. PATIENT VOIDS PER URINAL. HOURLY ROUNDS WERE DONE. BED ALARM IS ON . THE BED IS IN A LOW AND LOCKED POSITION.
--- NOTE | 2019-07-16 17:06 | NUR ---
Pt is known to cm from previous admissions. He lives in the [facility] at [facility] and functions at a w/c level. He has had hh per [facility] in the past and has also been to snf at for rehab. Pt's son/dpoa is very involved. Pt is being treated for pneumonia and will likely be here over the weekend. PT/OT evals in progress. [facility] liason is aware that he is here and can eval him Friday should a snf stay be recommended. Pt is hoping he can return to his apt and is receptive to hh. [facility] can be contacted at [phone] and orders faxed to [phone]. Will follow.
[2019-07-17 04:46] VITALS: BP 154/56
--- NOTE | 2019-07-17 06:05 | NUR ---
ASSESSMENT DOCUMENTED.PT BEEN RESTING IN NO ACUTE DISTRESS.A/OX4.VSS.DENIES PAIN OR ANY DISTRESS AT THIS TIME.CONTINUES IWTH ABT THERAPY,TOLERATING.NO CONCERNS AT THIS TIME.WILL CONT TO MONITOR PER POC.
[2019-07-17 07:53] VITALS: BP 173/73
[2019-07-17 11:12] VITALS: BP 124/55
[2019-07-17 16:16] VITALS: BP 157/75
--- NOTE | 2019-07-17 16:42 | NUR ---
PATIENT HAD AN UNEVENTFUL DAY. HE DMWCS3A COMFORTABLY IN BED MOST OF THE DAY WITH NO COMPLAINTS. NEW IV WAS STARTED IN LEFT FA. IV IN LEFT HAND INFILTRATED AND WAS REMOVED. FAMILY WAS AT BEDSIDE SOME OF THE DAY AND WERE PLEASANT. PATIENT RECEIVED IV ANTIBIOTICS AND MRSA OF NARES WAS COLLECTED. PATIENT WAS CONTINENT OF URINE AND DID NOT HAVE A BM. ONLY COMPLAINT WAS THAT HIS NOSE WAS BLEEDING A LITTLE FROM DRY AIR. RT WAS CONSULTED TO GET HUMIDIFIER.
[2019-07-17 20:07] VITALS: BP 162/82
[2019-07-18 00:36] VITALS: BP 141/50
[2019-07-18 04:08] LABS: CALCIUM 8.4 mg/dL (8.5-10.1); CREATININE 1.3 mg/dL (0.7-1.3); MAGNESIUM 1.8 mg/dL (1.8-2.4); POTASSIUM 3.9 mmol/L (3.5-5.1)
[2019-07-18 04:13] LABS: HEMATOCRIT 33.3 % (42.0-52.0); HEMOGLOBIN 10.6 gm/dL (14.0-18.0); MCH 26.7 pg (26.0-34.0); MCHC 31.8 g/dL (28.0-37.0); MCV 83.9 fL (80.0-100.0); RBC 3.97 mil/uL (4.50-6.00); RDW 16.4 % (10.5-14.5); WBC 8.4 thou/uL (4.0-11.0)
--- NOTE | 2019-07-18 04:31 | NUR ---
ASSESSMENT DOCUMENTED.PT BEEN RESTING IN NO ACUTE DISTRESS.A/OX4.VSS.ON O2 AT 1LITER PNC W/O RESP DISTRESS.CONT ON PNA/ TREATMENT,TOLERATING.PAIN MEDS GIVEN PER ORDERS.PT WANTING TO KNOW HIS DISCHARGE PLANS.WILL CONT TO MONITOR PER POC.
[2019-07-18 05:47] VITALS: BP 163/47
[2019-07-18 12:50] VITALS: BP 161/67
[2019-07-18 16:16] VITALS: BP 161/67
--- NOTE | 2019-07-18 18:29 | NUR ---
ASSUMED CARE OF PT AT SHIFT CHANGE. ASSESSMENTS CHARTED. MEDS GIVEN PER NOV. VSS. PT A&O X3 IN THE MORNING, BUT ONLY TO SELF IN THE AFTERNOON. C/O PAIN TREATED WITH PO MEDS. PT INCONTINENT BUT TRIES TO USE URINAL. CRITICAL LAB CALLED REGARDING POSITIVE URINE TEST FOR MRSA. ORDERED ISOLATION CART AND NOTIFIED PHYSICIAN. FAMILY CAME TO VISIT AND ISOLATION REASON AND PRECAUTIONS EXPLAINED. PT ON 2L NC. WILL CONTINUE TO MONITOR AND FOLLOW POC.
[2019-07-18 20:37] VITALS: BP 152/51
[2019-07-19 03:30] VITALS: BP 155/53
--- NOTE | 2019-07-19 08:58 | NUR ---
DR. MCCLAIN PRESENT. LOW SEMI-FAIRBANKS IN BED, GREEN SPUTUM ON HIS CHIN, RHONCHI, RESP LABORED, ALERT TO PERSON. REPOSTIONED ON R SIDE, SITTING UP IN BED, RESP TXMENT GIVEN PER RT. WITH VERBAL ENCOURAGEMENT PT COUGHING UP SECRETIONS, THICK AND YELLOW, THEN SLOWLY BECOMING CLEAR. PAIN MED GIVEN FOR R KNEE PAIN. PT PROGRESSING.
--- NOTE | 2019-07-19 16:40 | NUR ---
spoke with patient and son. reviewed therapy eval. Son reports he was present when therapy evaled he reports patient very weak and appears worse today. Discussed father lives in assisted living and possible skilled rehab need. son agrees. Referral to [facility].
--- NOTE | 2019-07-19 17:11 | NUR ---
FAXED REFERRAL TO [facility] SPOKE WITH JEWELL IN ADM SHE RECEIVED REFERRAL AND WILL REVIEW. DP TO FOLLOW.
[2019-07-19 20:19] VITALS: BP 159/49
--- NOTE | 2019-07-19 20:32 | NUR ---
PT MORE ALERT, ABLE TO HANDLE HIS OWN SECRETIONS, TOLERATES EATING WITH BEING SHORT OF AIR, O2 3L/NC, JUNCTIONAL RHYTHM, INCONTINENT OF URINE. SON PRESENT TWICE TODAY, UPDATED PT PROGRESS/PLAN OF CARE. PT SLOWLY PROGRESSING.
--- NOTE | 2019-07-20 04:36 | NUR ---
PATIENTS CARES WAS ASSUMED AT SHIFT CHANGE. PATIENT WAS ASSESSSED AND MEDS WERE PASSED. PATIENT IS VERY STIF WITH A RESIDUAL EFFECT FROM A CVA. PATIENT ALSO HAS A AKA LEFT LEG AND HAS NO PROSTHESIS. PT HAS WORKED WITH HIM PER PATIENT. TOWEL OLLED TO HELP WITH HIS PAINFUL HANDS. PAIN PILLS GIVEN WELL. HOURLY ROUNS WERE MADE. BED ALARM IS ON. THE BED IS IN A LOW AND LOCKED POSITION.
[2019-07-20 05:35] LABS: HEMATOCRIT 31.7 % (42.0-52.0); HEMOGLOBIN 10.1 gm/dL (14.0-18.0); MCH 26.5 pg (26.0-34.0); MCHC 31.9 g/dL (28.0-37.0); MCV 83.1 fL (80.0-100.0); RBC 3.82 mil/uL (4.50-6.00); RDW 16.8 % (10.5-14.5)
[2019-07-20 06:32] VITALS: BP 150/48
[2019-07-20 08:38] VITALS: BP 160/53
[2019-07-20] MEDS ORDERED: LASIX 20 MG TAB20 MG PO (12:05)
[2019-07-20] MEDS ORDERED: LEVAQUIN 750 M750 MG PO (12:05)
[2019-07-20] MEDS ORDERED: HYDROCODON-ACE1 EAC7 PO (12:05)
[2019-07-20] MEDS ORDERED: K-DUR10 MEQ PO (12:05)
[2019-07-20] MEDS ORDERED: BACTRIM DS TAB1 EACH PO (12:05)
[2019-07-20 12:18] VITALS: BP 160/53
[2019-07-20 16:21] VITALS: BP 184/60
--- NOTE | 2019-07-20 16:23 | NUR ---
ASSESSMENTS AND INTERVENTIONS DOCCUMENTED. PATIENT IN BED CONTINUING TO COUGH UP SPUTUM. SON AT BEDSIDE AND EDUCATED ABOUT PATIENT STATUS AND POSSIBLE DISCHARGE. SON HAVING CONCERNS ABOUT DISCHARGE TO REHAB. SON EDUCATED ON THE NEED FOR REHAB. DR. SARAHI AZAR AND RN AND DISCUSSED PLAN OF CARE AND DISCHARGE. NO BED AVAILABLE AT [facility]. CASE BHARAT. WORKING ON PATIENT DISCHARGE. PATIENT RESTING QUIETLY AT THIS TIME.
--- NOTE | 2019-07-20 16:40 | NUR ---
patient with dc orders to [facility]. [facility] checking on their bed status for acceptance. Late in afternoon [facility] reports no bed avail and may not have bed avail in am. patient resides in [place] at facility. Sp with son and left skilled list in room to review, he strongly prefers [facility].
[2019-07-20 19:36] VITALS: BP 156/55
--- NOTE | 2019-07-21 04:41 | NUR ---
ASSUMED CARE AT 1900. PT ALERT AND ORIENTED. SCHEDULED PAIN MEDS , FOR BACK PAIN. DENIES CP, SOB, N/.V/D. VITAL STABLE.. ANTICIPATED DC TO REHAB THIS AM. PT CURRENTLY STABLE.
[2019-07-21 05:36] VITALS: BP 180/56
[2019-07-21 08:59] LABS: ABSOLUTE NEUTROPHILS 7.1 thou/uL (1.4-8.2); BASOPHILS 0.4 % (0.0-2.0); EOSINOPHILS 1.8 % (0.0-3.0); HEMATOCRIT 35.2 % (42.0-52.0); HEMOGLOBIN 11.2 gm/dL (14.0-18.0); LYMPHOCYTES 7.9 % (24.0-44.0); MCH 26.1 pg (26.0-34.0); MCHC 31.7 g/dL (28.0-37.0); MCV 82.6 fL (80.0-100.0); MONOCYTES 11.8 % (1.0-8.0); POLYS 78.1 % (36.0-66.0); RBC 4.27 mil/uL (4.50-6.00); RDW 16.5 % (10.5-14.5); WBC 9.2 thou/uL (4.0-11.0)
[2019-07-21 09:13] LABS: ALBUMIN 2.4 g/dL (3.4-5.0); ANION GAP 9 mmol/L (7-16); BUN 13 mg/dL (7-18); CALCIUM 9.1 mg/dL (8.5-10.1); CHLORIDE 101 mmol/L (98-107); CO2 31 mmol/L (21-32); CREATININE 1.3 mg/dL (0.7-1.3); GLUCOSE 82 mg/dL (74-106); MAGNESIUM 1.6 mg/dL (1.8-2.4); POTASSIUM 3.5 mmol/L (3.5-5.1); SGOT 13 U/L (15-37); SGPT 10 U/L (30-65); SODIUM 141 mmol/L (136-145); TOTAL BILIRUBIN 0.5 mg/dL (<0.1-1.0); TOTAL PROTEIN 6.3 g/dL (6.4-8.2); TROPONIN-I <0.06 ng/mL (<0.06)
[2019-07-21 09:13] LABS: BE(vivo) 2.4 mmol/L (-2 to +3); HCO3 27.6 mmol/L (22.0-26.0); PCO2 44.9 mmHg (35.0-45.0); PO2 59.3 mmHg (80.0-100.0); pH 7.406 (7.360-7.450); sO2 90.7 % (92.0-98.0)
[2019-07-21 09:25] VITALS: BP 147/57
[2019-07-21 09:49] LABS: ANISOCYTOSIS 1+; PLATELET COUNT 146 thou/uL (150-400); PLATELET ESTIMATE NORMAL
[2019-07-21 11:15] VITALS: BP 151/57
--- NOTE | 2019-07-21 13:01 | 2DMMODE ---
[facility] [address] [place] [address] 2 D/M-MODE ECHOCARDIOGRAM Name: CARLOTAMARCUS FAIR Room #: 212-P ADM IN .R.#: [id number] Admission: 07/15/19 Attend Phys: Qamar Meeks MD Discharge: Date of : 35 Report #: [id number] THIS REPORT FOR: //name// APPROVED REPORT Study performed: 07/21/2019 11:18:47 EXAM: Comprehensive 2D, Doppler, and color-flow Echocardiogram Patient Location: Bedside Room #: [facility] Status: routine BSA: 1.77 HR: 69 bpm BP: 180/56 mmHg Rhythm: NSR Other Information Study Quality: Fair Indications COPD Pulmonary Hypertension Dyspnea CAD Hypertension/HDD 2D Dimensions RVDd: 33.73 mm IVSd: 12.33 (7-11mm) LVOT Diam: 19.00 (18-24mm) LVDd: 41.52 mm PWd: 11.68 (7-11mm) Ascending Ao: 24.27 (22-36mm) LVDs: 29.74 (25-40mm) Aortic Root: 29.12 mm Volumes Left Atrial Volume (Systole) Single Plane 4CH: 47.43 mL Single Plane 2CH: 40.44 mL LA ESV Index: 27.00 mL/m2 Aortic Valve AoV Peak Clinton.: 1.40 m/s AO Peak Gr.: 7.85 mmHg LVOT Max P.06 mmHg LVOT Max V: 1.01 m/s DANDY Vmax: 2.04 cm2 [facility] [address] [place] [address] 2 D/M-MODE ECHOCARDIOGRAM Name: JASMINMARCUS DANIELS Room #: 212-P [facility] IN [facility]#: [id number] Admission: 07/15/19 Attend Phys: Qamar Meeks MD Discharge: Date of : 35 Report #: [id number] Mitral Valve E/A Ratio: 0.8 MV Decel. Time: 232.21 ms MV E Max Clinton.: 0.97 m/s MV A Clinton.: 1.23 m/s MV PHT: 67.34 ms IVRT: 170.70 ms Pulmonary Valve PV Peak Clinton.: 1.31 m/s PV Peak Gr.: 6.83 mmHg Pulmonary Vein P Vein S: 0.48 m/s P Vein A: 0.22 m/s P Vein D: 0.30 m/s P Vein A Dur.: 87.7 msec P Vein S/D Ratio: 1.60 Tricuspid Valve TR Peak Clinton.: 3.02 m/s TR Peak Gr.: 36.40 mmHg PA Pressure: 46.00 mmHg Left Ventricle The left ventricle is normal size. Mild concentric left ventricular hypertrophy. Left ventricular systolic function is borderline. LVEF is 50%. Grade I - abnormal relaxation pattern. Right Ventricle The right ventricle is normal size. The right ventricular systolic function is normal. Atria The left atrium size is normal. The right atrium size is normal. Aortic Valve The aortic valve is normal in structure. The Aortic valve is sclerotic. No aortic regurgitation is present. There is no aortic valvular stenosis. Mitral Valve The mitral valve is normal in structure. Trace mitral regurgitation. No evidence of mitral valve stenosis. Tricuspid Valve The tricuspid valve is normal in structure. There is trace to mild tricuspid regurgitation. Estimated PAP 46 mmHg. There is moderate [facility] [address] [place] [address] 2 D/M-MODE ECHOCARDIOGRAM Name: MARCUS VAN Room #: 212-P ADM IN M.R.#: [id number] Admission: 07/15/19 Attend Phys: Qamar Meeks MD Discharge: Date of : 35 Report #: [id number] pulmonary hypertension. Pulmonic Valve The pulmonary valve is normal in structure. There is no pulmonic valvular regurgitation. Great Vessels The aortic root is normal in size. IVC is not well visualized. Pericardium There is no pericardial effusion. <Conclusion> The left ventricle is normal size. LVEF is 50%. The aortic valve is normal in structure. The Aortic valve is sclerotic. The mitral valve is normal in structure. Trace mitral regurgitation. The tricuspid valve is normal in structure. There is trace to mild tricuspid regurgitation. Estimated PAP 46 mmHg. There is moderate pulmonary hypertension. The pulmonary valve is normal in structure. <ELECTRONICALLY SIGNED> By: Deny Gonsalves MD 07/21/19 1301 1301 1301 Deny Gonsalves MD /INF
--- NOTE | 2019-07-21 14:46 | NUR ---
patient not stable for dc. Updated [facility] they may have bed avail Friday. Updated son who requests possible 5N he has been in past. Referral to 5N.
[2019-07-21 17:12] VITALS: BP 171/62
--- NOTE | 2019-07-21 17:52 | NUR ---
Patient was very sort of breath this am and stated that he didnt feel well at all. Around lunchtime after receiving one dose of iv lasix and voiding a large amount he appeared to feel better. His apetite returned and he did eat his lunch. This afternoon he worked with therapy. Now he is resting well and appears to feel ok.
[2019-07-21 19:44] VITALS: BP 186/53
[2019-07-22 03:41] VITALS: BP 152/54
--- NOTE | 2019-07-22 04:38 | NUR ---
ASSUMED PT CARE AT 1900. PT HAS SOME FORGETFUL MOMENTS HOWEVER VERY COOPERATIVE. PT VSS AND C/O PAIN IN KNEE WITH PARTIAL RELIEF WITH PAIN MEDICATION. PT DID SLEEP THRU NIGHT. WILL CONTINUE TO MONITOR PT PER POC AND ASSESSMENTS CHARTED.
[2019-07-22 05:44] LABS: HEMATOCRIT 35.2 % (42.0-52.0); HEMOGLOBIN 11.2 gm/dL (14.0-18.0); MCH 25.9 pg (26.0-34.0); MCHC 31.8 g/dL (28.0-37.0); MCV 81.6 fL (80.0-100.0); PLATELET COUNT 167 thou/uL (150-400); RBC 4.32 mil/uL (4.50-6.00); RDW 16.7 % (10.5-14.5); WBC 8.2 thou/uL (4.0-11.0)
[2019-07-22 06:12] LABS: ALBUMIN 2.3 g/dL (3.4-5.0); CREATININE 1.4 mg/dL (0.7-1.3); MAGNESIUM 1.4 mg/dL (1.8-2.4); TOTAL BILIRUBIN 0.5 mg/dL (<0.1-1.0); TOTAL PROTEIN 6.6 g/dL (6.4-8.2)
[2019-07-22 06:53] LABS: ABSOLUTE NEUTROPHILS 6.2 thou/uL (1.4-8.2); ANISOCYTOSIS 1+; ATYPICAL LYMPHS 1 %; METAMYELOCYTES 1 %; PLATELET ESTIMATE NORMAL
[2019-07-22 06:54] LABS: BURR CELLS FEW; HYPOCHROMASIA 1+; LARGE PLATELETS FEW; OVALOCYTES 1+
[2019-07-22 08:50] VITALS: BP 150/55
--- NOTE | 2019-07-22 13:24 | NUR ---
Assess due to length of stay. Admitted with pneumonia. Advanced age 84. Upon visit, pt lying with eyes clothes, washcloth over forehead, moaning. Son stated pt had headache. Son able to relay pt not eating very well past week. Wt is usually stable but down 6 lb over admit-combination loss likely with lasix and poor appetite. Lunch tray at bedside-pt only asking for soup and willing to eat some peaches. Did not respond when asked if he would like to trial some Ensure but son agreed this would be helpful. Will order. Decreased appetite likely related to acute illness. Low nutrition risk
--- NOTE | 2019-07-22 14:14 | NUR ---
5n justina and following unsure if patient able to tolerate acute rehab. [facility] anticipates a bed avail tomorrow. Updated son who is in room. [email or web address] following.
--- NOTE | 2019-07-22 16:37 | NUR ---
PT CARE ASSUMED APPROX 0710. ASSESSMENTS CHARTED. PT REPORTS GENRALIZED PAIN. REPOSITIONING AND RELAXATION HAS BEEN EFFECTIVELY MANAGING PAIN. TURNING Q2HRS AND PRN. PT TOLERATING POC. SON TO BEDSIDE AND GIVEN CLINICAL UPDATES THIS SHIFT. PT'S SON DENIES QUESTIONS AND CONCERNS REGARDING POC. PT SHOWING S/S OF ASPIRATION. SPEECH EVAL ORDER OBTAINED AT THIS TIME. MEALS HELD UNTIL SEEN. UA UNCOLLECTED D/T PT'S INCONTINENCE. VSS. NO DISTRESS NOTED.
[2019-07-22 17:52] VITALS: BP 146/64
[2019-07-22 19:39] VITALS: BP 165/64
[2019-07-23 04:37] VITALS: BP 172/64
--- NOTE | 2019-07-23 05:05 | NUR ---
ASSUMED PT CARE AT 1900. PT HAD FAMILY IN ROOM. PT C/O OF KNEE PAIN. UPON GIVING MEDICATIONS CRUSHED PT EXPERIENCED NAUSEA AND VOMITTING AND PILLS WERE NOT ABSORBED. PT IS SCHEDULED FOR A SPEECH EVALUATION AND ALL ORAL MEDICATIONS WERE HELD PENDING TEST. PT HAS DIFFICULTY SWALLOWING LIQUIDS WELL APPLESAUCE AT TIMES. PHYSICIAN WAS CONTACTED AND ORDER RECEIVED FOR PAIN MEDICATION FOR KNEE. PT IV INFILTRATED AND NEW ONE STARTED. PT HAD INTERRUPTED SLEEP THROUGHOUT NIGHT. PT WAS RELIEVED OF KNEE PAIN. PT IS INCONTINENT BUT WILL ATTEMPT TO USE URINAL. URINE SPECIMEN UNCOLLECTED PT IS NOT ABLE TO PROVIDE A TRUE SAMPLE. WILL CONTINUE TO MONITOR PER PT POC.
--- NOTE | 2019-07-23 12:09 | EKG ---
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 RIOS : 1935 Requested By: Everett Rangel Order Number: [id number] MD: Jaime Stephens Measurements Intervals [place] Rate: 71 P: 1 [place]: 168 QRS: -23 QRSD: 90 T: -2 QT: 444 QTc: 483 Interpretive Statements Sinus rhythm Probable left atrial enlargement Abnormal R-wave progression, late transition Inferior infarct, old Compared to ECG 07/15/2019 11:50:17 No significant changes Electronically Signed On 07-23-2019 12:09:34 DISINTEGRATOR by Jaime Stephens [email or web address] <ELECTRONICALLY SIGNED> By: Jaime Stephens MD 07/23/19 1209 0834 Jaime Stephens MD /[facility]
[2019-07-23 12:13] VITALS: BP 154/57
[2019-07-23 12:18] VITALS: BP 154/57
--- NOTE | 2019-07-23 14:13 | NUR ---
FAXED ST NOTE AND PROG. NOTES TO [facility] SPOKE WITH JEWELL IN ADM SHE RECEIVED UPDATE. DP TO FOLLOW.
--- NOTE | 2019-07-23 14:42 | NUR ---
No weekend dc anticipated. Possible friday dc to snf at [facility]. CV liason updated. They can not hold the bed beyond Friday. They will need an update Friday am. DC operations planner faxed the pt's video swallow and diet recommendations to CV this afternoon. Pt and his family met with the attending today and discussed the plan of care. Will follow.
--- NOTE | 2019-07-23 16:53 | NUR ---
ASSUMED CARE PT AT SHIFT CHANGE. ASSESSMENTS CHARTED.MEDS GIVEN PER NOV. PT UNABLE TO SWALLOW WHOLE PILLS- EMAR DOCUMENTED. PT ALERT AND ORIENTED, VSS, O2 SATS WNL ON O2. DENIES SOB, CHEST PAIN. PT TURNS WELL IN BED FOR TURNS. INCONTINENT BOWEL AND BLADDER, UNSUCCESSFUL IN GETTING URINE SAMPLE. CONTINUING ATTEMPTS. VIDEO SWALLOW THIS SHIFT- SHOWING NO SIGNS ASPIRATION, CONTINUES TO COUGH AFTER EATING. MEALS CUT UP NEEDED. SON VISITED PT, UPDATED ON CARE PLAN PER PHYSICIAN. PT PROGRESSING TOWARDS GOALS. PLAN IS TO RETURN TO [facility] ONCE STABLE. CONTINUING TO MONITOR.
[2019-07-23 20:40] VITALS: BP 139/66
[2019-07-24 05:22] VITALS: BP 143/53
--- NOTE | 2019-07-24 06:48 | NUR ---
PATIENT ALERT.FORGETFUL.REPOSITION NEEDED.INCONTINENT AT TIMES.BM X 1.ABLE TO SWALLOW PILLS CRUSHED,TAKEN WITH APPLE SAUCE.O2 4L NC.MONITOR SHOWS SR.POC CONTINUED.
[2019-07-24 08:00] VITALS: BP 157/57
[2019-07-24 11:55] VITALS: BP 111/56
[2019-07-24 16:00] VITALS: BP 114/56
--- NOTE | 2019-07-24 17:44 | NUR ---
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 He ate all of his breakfast and most of his lunch and dinner. Was moving around more in the bed and seemed able to ue right arm and hand better. He was able to feed himself. Patient had two large episodes of urine incontinence in the am but by 1600 had not voided again. Bladder scan revealed 450 cc of urine in bladder. As nurse prepared to straight cath patient was ble to void 275 cc in urinal. Did not straight cath since order is for only greater than 450. Will continue to monitor closely and pass on in report. Patient is resting in bed enjoying watching pablo and alejandraing for his team Damaris.
[2019-07-24 19:50] VITALS: BP 152/51
[2019-07-25 04:31] LABS: HEMATOCRIT 33.2 % (42.0-52.0); HEMOGLOBIN 10.7 gm/dL (14.0-18.0); MCH 25.9 pg (26.0-34.0); MCHC 32.1 g/dL (28.0-37.0); MCV 80.4 fL (80.0-100.0); RBC 4.12 mil/uL (4.50-6.00); RDW 17.1 % (10.5-14.5); WBC 8.4 thou/uL (4.0-11.0)
[2019-07-25 04:33] LABS: CALCIUM 8.4 mg/dL (8.5-10.1); CREATININE 1.5 mg/dL (0.7-1.3); MAGNESIUM 1.6 mg/dL (1.8-2.4)
[2019-07-25 04:37] LABS: POTASSIUM 2.9 mmol/L (3.5-5.1)
[2019-07-25 06:08] VITALS: BP 162/75
--- NOTE | 2019-07-25 06:28 | NUR ---
PATIENT ALERT.FORGETFUL AT TIMES.REPOSITIONED NEEDED.VOIDS PER URINAL.INCONTINENT AT TIMES.K LEVEL IS 2.9 THIS AM.POTASSIUM IS REPLACED.MONITOR SHOWS SB.POC CONTINUED.
[2019-07-25 08:00] VITALS: BP 186/81
[2019-07-25 12:00] VITALS: BP 145/65
--- NOTE | 2019-07-25 12:10 | NUR ---
NURSING NOTE FOR DATE OF 07/23/19: PT HAD TROUBLE SWALLOWING AND WOULD COUGH AFTER DRINKING/EATING, PT KEPT NPO FOR THE TIME BEING AND HAD A VIDEO SWALLOW DONE. BREAKFAST AND MORNING SUPPLEMENT HELD DUE TO SUSPICIONS OF ASPIRATION. RESULTS STATED NO SIGNS OF ASPIRATION DETECTED. FOLLOWING MEALS CUT APPROPRIATELY FOR PT TO EAT.
[2019-07-25 16:00] VITALS: BP 145/72
[2019-07-25 19:40] VITALS: BP 146/48
[2019-07-25 20:00] VITALS: BP 116/52
--- NOTE | 2019-07-25 20:04 | NUR ---
PATIENT SLOWLY PROGRESSING TOWARDS PLAN OF CARE. HE HAS BEEN CONFUSED TODAY, EXPRESSING THAT HE DOES DID NOT KNOW WHAT THIS PLACE IS, HOWEVER KNEW THE DATE. HE REFUSED BREAKFAST AND LUNCH AND WAS AGGITATED. ONCE HIS PAIN WAS BETTER HE BECAME COOPERATIVE, PLEASANT AND INCREASINGLY INTERACTIVE. FAMILY VISITED HIM TODAY. POTASSIUM INFUSED SLOWLY TODAY SECONDARY TO THE FACT IT VALENZUELA HIS VEINS. HE EXPRESSED IT WAS TOLERABLE WHEN THE ZOSYN IN INFUSING. NEW IV OBTAINED TODAY. LAB AT 1215 WAS NOTED. NO POTASSIUM OR ZOSYN WAS INFUSING AT TIME OF LAB DRAW SECONDARY TO NO IV.
--- NOTE | 2019-07-26 04:12 | NUR ---
PATIENT WAS LETHARGIC AT THE BEGINNING OF THIS SHIFT BUT EASILY AROUSABLE.TOOK ALL MEDS.REPOSITIONED NEEDED.MONITOR SHOWS SINUS PK,SINUS RHYTHM.VOIDED.INCONTINENT AT TIMES.O2 3L NC.WILL MONITOR AND CONTINUE POC.
[2019-07-26 04:35] LABS: HEMATOCRIT 35.3 % (42.0-52.0); HEMOGLOBIN 11.1 gm/dL (14.0-18.0); MCH 25.4 pg (26.0-34.0); MCHC 31.5 g/dL (28.0-37.0); MCV 80.5 fL (80.0-100.0); RBC 4.39 mil/uL (4.50-6.00); RDW 17.1 % (10.5-14.5); WBC 7.3 thou/uL (4.0-11.0)
[2019-07-26 04:52] LABS: CALCIUM 8.9 mg/dL (8.5-10.1); CREATININE 1.4 mg/dL (0.7-1.3)
[2019-07-26 04:54] LABS: POTASSIUM 2.9 mmol/L (3.5-5.1)
[2019-07-26 05:18] VITALS: BP 155/66
[2019-07-26 08:41] VITALS: BP 121/53
--- NOTE | 2019-07-26 12:03 | NUR ---
RECEIVED PT'S CARE AROUND 0710; PT. ON BED; RESTING WITH EYES CLOSED; REGULAR CHEST RISING NOTICED; DURING ASSESSMENT NO C/O PAIN; REQUESTED TO USE THE URINAL & BED TRUONG; HAD UNFORM SOFT STOOL; BREAKFAST TRAY SET; AM MEDICATIONS GIVEN; NOT COUGH; EDUCATED ABOUT NOT ABLE TO HAVE STRAWS; UP TO CHAIR WITH PT; PER PT. PT. ABLE TO STAND UP STRONG; POTASSIUM & MAG REPLACE; ON O2; MONITORING; ASSESSMENT CHARGED; FOLLOWING POC; D/C ORDERS ON PLACE; WILL COMMUNICATE SON; EXPECT TIME TO D/C 1300;
[2019-07-26 12:30] VITALS: BP 101/53
--- NOTE | 2019-07-26 13:27 | NUR ---
PT DISCHARGING TODAY TO [facility] FAXED DC ORDERS/SUMMARY TO FACILITY SPOKE WITH USAMA IN ADM SHE RECEIVED DC ORDERS AND ARRANGED TRANSPORT BY [facility] FOR 1300 TODAY. NOTIFIED PT'S SON (MARILUZ) OF DC AND TIME OF TRANSPORT. UNIT NOTIFIED AND CHART COPY PER US. RN TO CALL REPORT TO [phone].
--- NOTE | 2019-07-30 11:56 | HC ---
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 The patient was admitted with shortness of breath, cough, noted to have sepsis with possible healthcare-associated pneumonia as well as urinary tract infection. Cultures revealed MRSA growing from the urine culture. He developed acute hypoxic respiratory failure. Remained on supplemental oxygen therapy. He also has had acute renal insufficiency superimposed on chronic kidney disease. There was an attempt to convert from parenteral to oral antibiotics, but he had worsening oxygenation, needing 4 liters compared to 3 liters and continues on broad spectrum parenteral antibiotics. He also has toxic metabolic encephalopathy with plan to deescalate opiates may be Neurontin and may be even Lamictal. If not, further improving in mental status. Regarding his acute hypoxic respiratory failure, there is concern with possible microaspiration as it has not been resolving as expected. He does have some pulmonary vascular congestion and is being diuresed. He also has generalized weakness and debilitation along with medical complexity. We are seeing him in rehabilitation medicine consultation. PAST MEDICAL HISTORY: Includes hypertension, GERD, elevated cholesterol, CVA, peripheral vascular disease, chronic kidney disease, left above-knee amputation, and prior coronary artery bypass grafting. HABITS: No history of tobacco or alcohol abuse. FAMILY HISTORY: Heart disease. ALLERGIES: CODEINE. MEDICATIONS: Please see the full medication listing. SOCIAL HISTORY: Lives at [facility] with his . He has a floor to ceiling pole with a swivel disk with staff assistance with transfers. He pivot transfers into the wheelchair. He does have a manual wheelchair and it is primarily propelled by others. He does have an involved son. REVIEW OF SYSTEMS: No current complaints of chest pain or abdominal discomfort. [address] [address] CONSULTATION Name: MARCUS VAN MANJULA Room #: 212-P [facility] IN M.R.#: [id number] Admission: 07/15/19 Attend Phys: Qamar Meeks MD Discharge: 07/26/19 Date of : 35 Report #: [id number] He does have some shortness of breath with increased activity. He is urinating more with the diuresis. He has the premorbid weakness of the left side. Did not complain of any headaches. He has complaints of generalized weakness. He does have a prior history of the vascular disease. PHYSICAL EXAMINATION: GENERAL: He is an 84-year-old white male lying in bed, no obvious distress. There is a delay in his responses, but he will follow basic 1 step commands. VITAL SIGNS: Last recorded temperature 98.7, pulse 65, respirations 15, and blood pressure 180/56. NEUROLOGIC: His Facies appeared symmetric. He is on 4 liters nasal cannula. He appears to have some decreased memory. Some decreased attention. He will follow basic 1 step commands. HEENT: Facies appeared to be symmetric. He might have a mild depressed left nasolabial fold. EXTREMITIES: Right upper extremity functional range of motion, strength is probably a grade 4-/5. Left upper extremity, he has flexion positioning of the left elbow with some decreased left elbow and extension. Tone appeared somewhat increased, although Quan's was negative. Strength was decreased, probably a grade 3 to 3+/5. Left lower extremity revealed the well-healed above-knee amputation. He was unable to move that left residual limb for me. Right lower extremity, he appeared to have decreased knee extension with a flexion contracture of 25 degrees. Strength of that right lower extremity is probably a grade 3+. DTRs are 1 to trace. Functionally, he has been max assist with supine to sit. He is sat up at edge of bed for 8 minutes, working on balance. Rolling right to left is max assist. Lower extremity dressing is mod assist. ASSESSMENT: An 84-year-old white male with the following problem list: 1. Toxic metabolic encephalopathy. 2. Acute on chronic respiratory failure. He notes he was not on any nasal prong O2 at home premorbidly. 3. Possible healthcare-associated pneumonia versus aspiration pneumonia. 4. Sepsis, which has resolved. 5. Methicillin-resistant Staphylococcus aureus urinary tract infection. 6. Pulmonary vascular congestion. 7. Acute renal insufficiency superimposed on chronic kidney disease. 8. Prior history of a cerebrovascular accident in 2002 with residual left hemiparesis. 9. Premorbid left above-knee amputation. PLAN: The patient meets diagnostic criteria for an acute in-hospital inpatient rehabilitation stay with his toxic metabolic encephalopathy. He also has medical complexity with generalized debilitation. He also meets the medical necessity criteria and has multiple medical comorbidities and it certainly may be better to try to manage these on the acute inpatient rehab chopra with the ability for the multiple reporting process consultant physicians to follow with him. The only [address] [place] [address] CONSULTATION Name: MARCUS VAN Room #: 212-P [facility] IN M.R.#: [id number] Admission: 07/15/19 Attend Phys: Qamar Meeks MD Discharge: 07/26/19 Date of : 35 Report #: [id number] question is whether he has the tolerance for an acute in-hospital inpatient rehabilitation program. Also, if it is reasonable for him to return back to the assisted living facility post-rehabilitation stay. He was receiving assistance for basic transfers premorbidly at the assisted living facility, which does facilitate things. We will check regarding his tolerance for an acute inpatient rehabilitation program and we will follow along with you. Thank you for asking us to assist in this patient's care. <ELECTRONICALLY SIGNED> By: Jm Zimmerman MD 07/30/19 1156 1217 1519 Jm Zimmerman MD /nt
== END 2019-07-26 13:15 | DRG 871 ==
LOC: ER 10:34 → 2N 17:14 → EROBS 17:14 → 2N 23:26
PROVIDERS: Internal Medicine; Internal Medicine Pulmonary Disease; Physician Assistant; ADMIT Hospitalist
DX: A41.9 Sepsis, unspecified organism (principal); J18.9 Pneumonia, unspecified organism; G92 Toxic encephalopathy; J96.21 Acute and chronic respiratory failure with hypoxia; J96.22 Acute and chronic respiratory failure with hypercapnia; I69.354 Hemiplegia and hemiparesis following cerebral infarction affecting left non-dominant side; I13.0 Hypertensive heart and chronic kidney disease with heart failure and stage 1 through stage 4 chronic kidney disease, or unspecified chronic kidney disease; N17.9 Acute kidney failure, unspecified; N39.0 Urinary tract infection, site not specified; J44.0 Chronic obstructive pulmonary disease with (acute) lower respiratory infection; I25.10 Atherosclerotic heart disease of native coronary artery without angina pectoris; E03.9 Hypothyroidism, unspecified; K21.9 Gastro-esophageal reflux disease without esophagitis; E78.00 Pure hypercholesterolemia, unspecified; N40.0 Benign prostatic hyperplasia without lower urinary tract symptoms; I73.9 Peripheral vascular disease, unspecified; I50.9 Heart failure, unspecified; N18.3 Chronic kidney disease, stage 3 (moderate); B95.62 Methicillin resistant Staphylococcus aureus infection as the cause of diseases classified elsewhere; I95.9 Hypotension, unspecified; G54.7 Phantom limb syndrome without pain; R59.0 Localized enlarged lymph nodes; E87.6 Hypokalemia; I25.5 Ischemic cardiomyopathy; Y95 Nosocomial condition; Z90.49 Acquired absence of other specified parts of digestive tract; Z88.6 Allergy status to analgesic agent; Z89.612 Acquired absence of left leg above knee; I25.2 Old myocardial infarction; Z95.1 Presence of aortocoronary bypass graft; Z82.49 Family history of ischemic heart disease and other diseases of the circulatory system; Z79.82 Long term (current) use of aspirin; Z79.899 Other long term (current) drug therapy; Z87.891 Personal history of nicotine dependence
CPT/HCPCS: 10081

== ENCOUNTER 2019-09-04 09:04 | Inpatient (IN) | payer OTHER, BC ==
[~2019-09-04] VITALS: Ht 152.4 cm; Wt 64.9 kg
[~2019-09-04 09:04] MED LIST changes: +BACTRIM DS TAB1 EACH PO; +HYDROCODON-ACE1 EAC7 PO; +K-DUR10 MEQ PO; +LASIX 20 MG TAB20 MG PO; +NEURONTIN 300M300 M2 PO; +PANTOPRAZOLE SO40 M1 PO; +REQUIP 0.25 M0.25 MG PO
[2019-09-04 09:05] VITALS: BP 136/49
[2019-09-04 09:40] LABS: ABSOLUTE NEUTROPHILS 7.3 thou/uL (1.4-8.2); BASOPHILS 0.9 % (0.0-2.0); EOSINOPHILS 1.3 % (0.0-3.0); HEMATOCRIT 37.7 % (42.0-52.0); HEMOGLOBIN 11.8 gm/dL (14.0-18.0); LYMPHOCYTES 9.9 % (24.0-44.0); MCH 26.6 pg (26.0-34.0); MCHC 31.2 g/dL (28.0-37.0); MCV 85.2 fL (80.0-100.0); MONOCYTES 5.5 % (1.0-8.0); PLATELET COUNT 115 thou/uL (150-400); POLYS 82.4 % (36.0-66.0); RBC 4.42 mil/uL (4.50-6.00); RDW 19.8 % (10.5-14.5); WBC 8.9 thou/uL (4.0-11.0)
[2019-09-04 09:47] LABS: CALCIUM 8.9 mg/dL (8.5-10.1); CREATININE 1.6 mg/dL (0.7-1.3); POTASSIUM 4.4 mmol/L (3.5-5.1)
[2019-09-04 09:56] LABS: ALBUMIN 3.3 g/dL (3.4-5.0); TOTAL BILIRUBIN 0.9 mg/dL (<0.1-1.0); TOTAL PROTEIN 6.9 g/dL (6.4-8.2); TROPONIN-I 0.19 ng/mL (<0.06)
[2019-09-04 10:02] LABS: ANISOCYTOSIS 2+; BURR CELLS OCCASIONAL; LARGE PLATELETS FEW; SCHISTOCYTES RARE
[2019-09-04 10:03] LABS: OVALOCYTES OCCASIONAL; PLATELET ESTIMATE DECREASED; TEARDROPS RARE
[2019-09-04 10:04] LABS: BE(vivo) 0.6 mmol/L (-2 to +3); HCO3 26.2 mmol/L (22.0-26.0); PCO2 46.1 mmHg (35.0-45.0); PO2 69.8 mmHg (80.0-100.0); pH 7.373 (7.360-7.450); sO2 93.5 % (92.0-98.0)
[2019-09-04] MEDS ORDERED: CULTURELLE KID1 EAC1 PO (10:59)
[2019-09-04] MEDS ORDERED: VITAMIN C500 M2 PO (11:00)
[2019-09-04 11:08] VITALS: BP 155/70
[2019-09-04] MEDS ORDERED: BREO ELLIPTA 11 EACH INH (11:10)
[2019-09-04] MEDS ORDERED: [UNRECOGNIZED DRUG - OTHER] TOP (11:11)
[2019-09-04] MEDS ORDERED: COUGH DROPS5 MG BUCCAL (11:11)
[2019-09-04] MEDS ORDERED: FERRETTS325 MG PO (11:12)
[2019-09-04] MEDS ORDERED: SALINE NASAL SP88 ML NARES (11:13)
[2019-09-04] MEDS ORDERED: SENNA8.6 MG PO (11:14)
[2019-09-04] MEDS ORDERED: VOLTAREN GEL 1100 G1 TOP (11:15)
[2019-09-04] MEDS ORDERED: TAMIFLU30 MG PO (11:15)
[2019-09-04 12:30] VITALS: BP 154/58
[2019-09-04 13:00] VITALS: BP 156/58
--- NOTE | 2019-09-04 15:27 | NUR ---
REC REPORT FROM RN LEAVING FLOOR, PT RESTING, ACKNOWLEDGED INTRO, GAVE HIM HIS CALL LIGHT. WILL CONTINUE TO MONITOR
[2019-09-04 16:40] VITALS: BP 110/47
--- NOTE | 2019-09-04 18:28 | NUR ---
NPO STATUS: FAMILY WONDERING WHY PT'S NPO.
[2019-09-04 19:59] VITALS: BP 97/43
--- NOTE | 2019-09-04 21:59 | NUR ---
Patient Assessed and is Alert x 2-3.SKIN WARM AND DRY. RESP EVEN AND UNLABORED. TELE- SHOWS NSR. HAS EXTERNAL CONDOM CATH. VOIDS WELL. IS VERY GRUMPY THIS EVENING. BIPAP AT 50%. KYLE WELL. HAS 2 IV LEFT WRIST AND RIGHT AC. HEALTHY LOOKING. LEFT ABK AMPUTATION NOTED. TURNS WITH ASSISTANCE. LET SIDE WEAKNESS NOTED. MOUTH SWAB GOOD. REMAINS IN ISOLATION FOR MRSA URINE AND + FLU. REMAINS ON BEDREST. DENIES ANY PAIN AT PRESENT. REMAINS CC TELE. CONT PLAN OF CARE.
[2019-09-05 04:00] VITALS: BP 102/68
--- NOTE | 2019-09-05 04:39 | NUR ---
PATIENT PULLED OUT HIS IV IN LEFT HAND. WILL USE RIGHT FA IV FOR IV NEEDS. TURNED BUT REFUSED TO TURN THE LAST 2 TIMES. BIPAP CONTINUES 02 SAT 98%. WITH BIPAP @50%. DENIES ANY SOA. CONT PLAN OF CARE.
--- NOTE | 2019-09-05 04:52 | NUR ---
PATIENT HAS A EXTERNAL CATH PRESENT WITH 400 CC OUT THIS SHIFT.
[2019-09-05 07:30] VITALS: BP 126/46
[2019-09-05 11:50] VITALS: BP 149/57
--- NOTE | 2019-09-05 12:30 | NUR ---
spoke with Dr about pt's bipap. he agreed it should be removed. RT Jm removed it and put on the Nasal Canula with 4 liters oxygen. pt's sats at 96%, will monitor. pt also asked for applesauce, pt swallowed easily, no signs of aspiration. Dr Martinez ordered a 1800 low diet and mashed potatoes were fed to pt. he tolerated them well.
[2019-09-05 17:00] VITALS: BP 164/65
[2019-09-05 21:08] VITALS: BP 165/64
[2019-09-06 04:50] LABS: HEMATOCRIT 35.8 % (42.0-52.0); HEMOGLOBIN 11.1 gm/dL (14.0-18.0); MCH 26.1 pg (26.0-34.0); MCHC 30.9 g/dL (28.0-37.0); MCV 84.2 fL (80.0-100.0); RBC 4.25 mil/uL (4.50-6.00); RDW 19.5 % (10.5-14.5); WBC 8.3 thou/uL (4.0-11.0)
[2019-09-06 05:04] LABS: ALBUMIN 2.8 g/dL (3.4-5.0); CALCIUM 8.4 mg/dL (8.5-10.1); CREATININE 1.8 mg/dL (0.7-1.3); MAGNESIUM 2.1 mg/dL (1.8-2.4); POTASSIUM 3.6 mmol/L (3.5-5.1); TOTAL BILIRUBIN 0.7 mg/dL (<0.1-1.0); TOTAL PROTEIN 7.1 g/dL (6.4-8.2)
[2019-09-06 05:32] VITALS: BP 180/60
--- NOTE | 2019-09-06 07:03 | NUR ---
ASSUMED PT CARE AROUND 1900. PT VSS WITH C/O PAIN IN RLE. PAIN MEDICATION GIVEN PER EMAR. PT IS INCONTINENT. PT RESTED THRU NIGHT WITH MINIMAL INTERRUPTIONS. WILL CONTINUE TO MONITOR PT PER POC.
[2019-09-06 07:53] VITALS: BP 200/74
--- NOTE | 2019-09-06 10:15 | NUR ---
pt's BP 200/74. Dr Martinez called, aware, hydralazing IV prn ordered. given, will monitor. pt also requesting a wheelchair to get up to the toilet, PT has been ordered to assess pt's strength. pt aware he needs to wait for pt. sat on bedpan twice.
--- NOTE | 2019-09-06 12:02 | NUR ---
met with patient who pts since 07/23/19 has been skilled at [facility] skilled unit. Prior to skilled unit patient has been at [facility]. Patient with plan return to skilled unit at [facility]. Confirmed with son who has bed hold at facility and hopeful return in am. he reports his dad is looking much better. He admits resp failure and positive flu.
[2019-09-06 12:11] VITALS: BP 156/55
--- NOTE | 2019-09-06 13:03 | NUR ---
FAXED CLINICAL UPDATE TO [facility] SPOKE WITH KRYS IN ADM SHE RECEIVED UPDATE. DP TO FOLLOW.
[2019-09-06 15:00] VITALS: BP 181/68
--- NOTE | 2019-09-06 16:03 | EKG ---
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
[2019-09-06 20:37] VITALS: BP 191/76
[2019-09-07 00:09] VITALS: BP 151/61
[2019-09-07 05:04] VITALS: BP 168/60
--- NOTE | 2019-09-07 05:05 | NUR ---
Patients cares were assumed at shift change, patient was assessed and meds were passed. patient has slept well this shift, approx nine hours of sleep. no request were made. no c/o pain, nausea or disconfort. hourly rounds were done, the bed is in a low and locked position. The bed alarm is set.
[2019-09-07 05:39] LABS: ALBUMIN 2.8 g/dL (3.4-5.0); CALCIUM 8.4 mg/dL (8.5-10.1); CREATININE 1.6 mg/dL (0.7-1.3); POTASSIUM 3.2 mmol/L (3.5-5.1)
[2019-09-07 07:44] VITALS: BP 182/50
[2019-09-07] MEDS ORDERED: AUGMENTIN 875-1 EACH PO (08:10)
[2019-09-07] MEDS ORDERED: LASIX 40 MG TAB40 M2 PO (08:11)
[2019-09-07 09:16] VITALS: BP 182/50
--- NOTE | 2019-09-07 11:28 | NUR ---
PT DISCHARGING TODAY TO [facility] FAXED DC ORDERS/SUMMARY TO FACILITY SPOKE WITH RACHEL IN ADM. SHE RECEIVED DC ORDERS AND ARRANGED TRANSPORT BY [facility] FOR 1230. NOTIFIED PT'S SON (MARILUZ) OF DC AND TIME OF TRANSPORT. UNIT NOTIFIED AND CHART COPY PER US. RN TO CALL REPORT TO [phone].
== END 2019-09-07 15:30 | DRG 291 ==
LOC: ER 09:04 → EROBS 10:40 → 2N 10:40
PROVIDERS: Emergency Medicine; ADMIT Hospitalist
PROC: 5A09357 Assistance with Respiratory Ventilation, Less than 24 Consecutive Hours, Continuous Positive Airway Pressure (ICD-10-PCS; principal; 2019-09-04)
DX: I13.0 Hypertensive heart and chronic kidney disease with heart failure and stage 1 through stage 4 chronic kidney disease, or unspecified chronic kidney disease (principal); I50.33 Acute on chronic diastolic (congestive) heart failure; J11.08 Influenza due to unidentified influenza virus with specified pneumonia; J96.01 Acute respiratory failure with hypoxia; J44.1 Chronic obstructive pulmonary disease with (acute) exacerbation; J44.0 Chronic obstructive pulmonary disease with (acute) lower respiratory infection; N39.0 Urinary tract infection, site not specified; I69.354 Hemiplegia and hemiparesis following cerebral infarction affecting left non-dominant side; K21.9 Gastro-esophageal reflux disease without esophagitis; E78.00 Pure hypercholesterolemia, unspecified; E11.51 Type 2 diabetes mellitus with diabetic peripheral angiopathy without gangrene; I25.10 Atherosclerotic heart disease of native coronary artery without angina pectoris; N40.0 Benign prostatic hyperplasia without lower urinary tract symptoms; R59.0 Localized enlarged lymph nodes; E11.22 Type 2 diabetes mellitus with diabetic chronic kidney disease; I25.5 Ischemic cardiomyopathy; E03.9 Hypothyroidism, unspecified; Z66 Do not resuscitate; N18.3 Chronic kidney disease, stage 3 (moderate); Z79.899 Other long term (current) drug therapy; Z79.82 Long term (current) use of aspirin; Z88.6 Allergy status to analgesic agent; Z95.1 Presence of aortocoronary bypass graft; Z89.612 Acquired absence of left leg above knee; I25.2 Old myocardial infarction; Z87.891 Personal history of nicotine dependence; Z79.2 Long term (current) use of antibiotics; Z79.4 Long term (current) use of insulin; Z82.49 Family history of ischemic heart disease and other diseases of the circulatory system
CPT/HCPCS: 10081